=== PATIENT | female | born 1965 | race Caucasian/White ===

== ENCOUNTER → 2018-01-09 | Outpatient (CLI) | payer SELFPAY ==
--- NOTE | 2018-01-09 13:57 | Diagnostic Imaging Report ---
PROCEDURE: MRI lumbar spine. TECHNIQUE: Multiplanar, multisequence MRI of the lumbar spine was performed without contrast. INDICATION: Fall in August 2017 with continued low back pain. No prior studies are available for comparison. FINDINGS: Curvature and alignment is normal. There is very slight anterior wedging and central compression of the L5 vertebral body. There is some minimal edema within the L5 vertebral body. Features are suspicious for a healing L5 fracture. No definite retropulsion is seen. Remaining lumbar vertebrae demonstrate normal height and marrow signal intensity. There is fairly normal height and signal intensity to the lumbar discs apart from degenerative disc disease at L5-S1 with disc space narrowing and desiccation. The conus is unremarkable at the L1-L2 level. T12-L1: No central canal or neuroforaminal stenosis is identified. L1-L2: Unremarkable. L2-L3: There is mild ligamentous thickening but no central canal or neuroforaminal stenosis is identified. L3-L4: There are degenerative facet changes and mild ligamentous changes but no central canal narrowing is seen. There is very mild narrowing of the neuroforamina bilaterally. L4-L5: There is broad-based disc bulging, asymmetric in the midline and left paramidline location indenting the ventral thecal sac. Central canal remains widely patent. There does appear to be some narrowing of the left lateral recess and left neuroforamen. L5-S1: Central canal is patent. There is broad-based disc/osteophyte complex resulting in moderate right neuroforaminal and right lateral recess stenosis. Paraspinous tissues are unremarkable. IMPRESSION: 1. Findings suggestive of a healing fracture involving the superior endplate of the L5 vertebral body. No retropulsion is seen. 2. Generalized lumbar spondylosis with mild lateral recess and neuroforaminal narrowing described level by level above. No central canal stenosis is identified. Dictated by: Dictated on workstation # [id number]
== END ==
LOC: RAD 09:08
PROVIDERS: ATTEND Nurse Practitioner Family
DX: M99.73 Connective tissue and disc stenosis of intervertebral foramina of lumbar region (principal); M51.17 Intervertebral disc disorders with radiculopathy, lumbosacral region; M47.816 Spondylosis without myelopathy or radiculopathy, lumbar region
CPT/HCPCS: 72148

== ENCOUNTER 2018-04-11 13:46 | Emergency (ER) | payer SELFPAY ==
--- OUTSIDE RECORDS SUMMARY | 2018-04-11 14:10 | XMS REPORT ---
Author Author EMELY QUINTERO [facility] Address [address] [place] [address] Care Team Providers Care Automotive Dismantler Name Role Phone LEON EMELY Unavailable PROBLEMS Type Condition ICD9-CM Code [id number] Code Onset Dates Condition Status SNOMED Code Problem Elevated cholesterol E78.00 Active 95642004 Problem Primary insomnia F51.01 Active 7365409 Problem Lumbago with sciatica, left side M54.42 Active 306200521 Problem Dysthymia F34.1 Active 59923728 Problem Other chronic pain G89.29 Active 70559510 Problem Lumbago with sciatica, right side M54.41 Active 448535098733081 ALLERGIES No Known Allergies ENCOUNTERS Encounter Location Date Diagnosis [place] [address] [address] Feb, Lumbago with sciatica, left side M54.42 and Primary insomnia F51.01 [place] [address] [address] Jan, [place] [address] [address] Jan, Lumbago with sciatica, right side M54.41 and Lumbago with sciatica, left side M54.42 [place] [address] [address] Dec, Elevated cholesterol E78.00 [place] [address] [address] Dec, Lumbago with sciatica, left side M54.42 ; Elevated 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 reading R03.0 ; Lumbago with sciatica, right side M54.41 ; Other chronic pain G89.29 ; Dysthymia F34.1 ; Primary insomnia F51.01 and Encounter to establish care Z76.89 [facility] [address] [address] Dec, Primary insomnia F51.01 ; Lumbago with sciatica, left side M54.42 ; Lumbago with sciatica, right side M54.41 and Dysthymia F34.1 [facility] [address] [place] [id number] [place] [address] Dec, [facility] [address], [place] [address] Dec, Lumbago with sciatica, left side M54.42 ; Lumbago with sciatica, right side M54.41 ; Other chronic pain G89.29 ; Dysthymia F34.1 ; Primary insomnia F51.01 and Elevated 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 reading R03.0 [facility]ALK IN [facility] [address], [place] [address] Dec, IMMUNIZATIONS No Known Immunizations SOCIAL HISTORY Never Assessed REASON FOR VISIT Insomnia-ANGI garrett, can't sleep because of whole body is hurting PLAN OF CARE Activity Details Follow Up 4 Weeks Reason:insomnia VITAL SIGNS Height 68 in 2017-12-13 Weight 201.8 lbs 2017-12-13 Temperature 98.4 degrees Fahrenheit 2017-12-13 Heart Rate 72 bpm 2017-12-13 Respiratory Rate 20 2017-12-13 BMI 30.68 kg/m2 2017-12-13 Blood pressure systolic 124 mmHg 2017-12-13 Blood pressure diastolic 82 mmHg 2017-12-13 MEDICATIONS Medication Instructions Dosage Frequency Start Date End Date Duration Status Trazodone HCl 50 mg Orally Once a day 1 tablet at bedtime as needed 24h Dec, 28 days Active Gabapentin 300 MG Orally 3 times a day 1 capsule 8h Active Lamictal 100 mg Orally 3 times a day 3 tablets 8h 30 days Active Metaxalone 400 mg Orally Three times a day 1 tablet 8h Dec,Dec 07 days Active BuSpar 15 mg Orally Twice a day 1 tablet 12h 30 days Active Meloxicam 15 mg Orally Once a day 1 tablet 24h Dec, Jan, Active RESULTS No Results PROCEDURES No Known procedures INSTRUCTIONS MEDICATIONS ADMINISTERED No Known Medications MEDICAL (GENERAL) HISTORY Type Description Date Medical History disc narrowing L5-S1 Surgical History c section x2 Surgical History total hysterectomy 2006 Surgical History appendectomy Surgical History shoulder surgery x 3 Surgical History foot surgery x 2 Surgical History hand surgery for carpel tunnel x 2 Hospitalization History surgery reasons
--- OUTSIDE RECORDS SUMMARY | 2018-04-11 14:10 | XMS REPORT ---
Author Author EMELY QUINTERO [facility] Address [address] [place] [address] Care Team Providers Care Senior Process Engineer Name Role Phone KING EMELY Unavailable PROBLEMS Type Condition ICD9-CM Code [id number] Code Onset Dates Condition Status SNOMED Code Problem Elevated cholesterol E78.00 Active 34242901 Problem Primary insomnia F51.01 Active 1153297 Problem Lumbago with sciatica, left side M54.42 Active 693595344 Problem Dysthymia F34.1 Active 52956994 Problem Other chronic pain G89.29 Active 31840630 Problem Lumbago with sciatica, right side M54.41 Active [id number] ALLERGIES No Information ENCOUNTERS Encounter Location Date Diagnosis [place] [address] [address] Feb, Lumbago with sciatica, left side M54.42 and Primary insomnia F51.01 [place] [address] [address] Jan, [place] [address] [address] Jan, Lumbago with sciatica, right side M54.41 and Lumbago with sciatica, left side M54.42 [place] [address] [address] Dec, Elevated cholesterol E78.00 [place] [address] [address] Dec, Lumbago with sciatica, left side M54.42 ; Elevated 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 reading R03.0 ; Lumbago with sciatica, right side M54.41 ; Other chronic pain G89.29 ; Dysthymia F34.1 ; Primary insomnia F51.01 and Encounter to establish care Z76.89 [facility] [address], [place] [address] Dec, Primary insomnia F51.01 ; Lumbago with sciatica, left side M54.42 ; Lumbago with sciatica, right side M54.41 and Dysthymia F34.1 [facility] [address] [place] [address] Dec, [facility] [address] [place] [address] Dec, Lumbago with sciatica, left side M54.42 ; Lumbago with sciatica, right side M54.41 ; Other chronic pain G89.29 ; Dysthymia F34.1 ; Primary insomnia F51.01 and Elevated 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 reading R03.0 [facility] WALK IN [facility] [address], [place] [address] Dec, IMMUNIZATIONS No Known Immunizations SOCIAL HISTORY Never Assessed REASON FOR VISIT Requests return call PLAN OF CARE VITAL SIGNS MEDICATIONS No Known Medications RESULTS No Results PROCEDURES No Known procedures INSTRUCTIONS MEDICATIONS ADMINISTERED No Known Medications MEDICAL (GENERAL) HISTORY Type Description Date Medical History disc narrowing L5-S1 Surgical History c section x2 Surgical History total hysterectomy 2005 Surgical History appendectomy Surgical History shoulder surgery x 3 Surgical History foot surgery x 2 Surgical History hand surgery for carpel tunnel x 2 Hospitalization History surgery reasons
--- OUTSIDE RECORDS SUMMARY | 2018-04-11 14:10 | XMS REPORT ---
Author Author EMELY QUINTERO [facility] Address [address] [place] [address] Care Team Providers Care Mine Exploration Engineer Name Role Phone LEON EMELY Unavailable PROBLEMS Type Condition ICD9-CM Code NVM29-VD Code Onset Dates Condition Status SNOMED Code Problem Elevated cholesterol E78.00 Active 71590769 Problem Primary insomnia F51.01 Active 9108548 Problem Lumbago with sciatica, left side M54.42 Active 419239749 Problem Dysthymia F34.1 Active 11105045 Problem Other chronic pain G89.29 Active 55141908 Problem Lumbago with sciatica, right side M54.41 Active [id number] ALLERGIES No Known Allergies ENCOUNTERS Encounter Location Date Diagnosis [place] [address] [address] Feb, Lumbago with sciatica, left side M54.42 and Primary insomnia F51.01 [place] [address] [address] Jan, [place] [address] [address] Jan, Lumbago with sciatica, right side M54.41 and Lumbago with sciatica, left side M54.42 [place] [address] [address] Dec, Elevated cholesterol E78.00 [place] [address] [address] Dec, Lumbago with sciatica, left side M54.42 ; Elevated 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 reading R03.0 ; Lumbago with sciatica, right side M54.41 ; Other chronic pain G89.29 ; Dysthymia F34.1 ; Primary insomnia F51.01 and Encounter to establish care Z76.89 [facility] [address] [place] [address] Dec, Primary insomnia F51.01 ; Lumbago with sciatica, left side M54.42 ; Lumbago with sciatica, right side M54.41 and Dysthymia F34.1 [place] [address] [place] [id number] [place] [address] Dec, [facility] [address] [place] [id number] [place] [address] Dec, Lumbago with sciatica, left side M54.42 ; Lumbago with sciatica, right side M54.41 ; Other chronic pain G89.29 ; Dysthymia F34.1 ; Primary insomnia F51.01 and Elevated 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 reading R03.0 [facility] WALK IN [facility] [address] [place] [address] Dec, IMMUNIZATIONS Vaccine Route Administration Date Status TORADOL (IM) 60 MG/2ML (UP TO 15 MG) IM Intramuscular December 12, 2017 Administered SOCIAL HISTORY Never Assessed REASON FOR VISIT Establish Care-ANGI garrett, falling two or three times a day, head injury 2008. and having migrains PLAN OF CARE Activity Details Follow Up next available with behavioral health/4 weeks w mt Reason:depression /pain Pending Test PDM - 06 PANEL (PROFILE 3) VITAL SIGNS Height 68 in 2017-12-12 Weight 203.5 lbs 2017-12-12 Temperature 98.4 degrees Fahrenheit 2017-12-12 Heart Rate 96 bpm 2017-12-12 Respiratory Rate 20 2017-12-12 BMI 30.94 kg/m2 2017-12-12 Blood pressure systolic 160 mmHg 2017-12-12 Blood pressure diastolic 102 mmHg 2017-12-12 MEDICATIONS Medication Instructions Dosage Frequency Start Date End Date Duration Status Meloxicam 15 mg Orally Once a day 1 tablet 24h Dec, Jan, 30 day(s) Active Gabapentin 300 MG Orally 3 times a day 1 capsule 8h Active Amitriptyline HCl 100 MG Orally Once a day 1 tablet 24h Active BuSpar 15 MG Orally Twice a day 1 tablet 12h Active Lamictal 100 mg Orally 3 times a day 3 tablets 8h Active RESULTS Name Result Date Reference Range Xray : Spine, Lumbar 2-3 views (IN HOUSE) 2017-12-12 PROCEDURES Procedure Date Ordered Result Body Site X-RAY EXAM OF LOWER SPINE December 12, 2017 DRUG TEST PRSMV CHEM ANLYZR December 12, 2017 THER/PROPH/DIAG INJ, SC/IM December 12, 2017 TORADOL (IM) 60 MG/2ML (UP TO 15 MG) December 12, 2017 INSTRUCTIONS MEDICATIONS ADMINISTERED No Known Medications MEDICAL (GENERAL) HISTORY Type Description Date Medical History disc narrowing L5-S1 Surgical History c section x2 Surgical History total hysterectomy 2006 Surgical History appendectomy Surgical History shoulder surgery x 3 Surgical History foot surgery x 2 Surgical History hand surgery for carpel tunnel x 2 Hospitalization History surgery reasons
--- OUTSIDE RECORDS SUMMARY | 2018-04-11 14:10 | XMS REPORT ---
Author Author IGNACIO JOHNSON [facility] Address [address] [place] [address] Care Team Providers Care Monitor Car Operator Name Role Phone IGNACIO JOHNSON Unavailable PROBLEMS Type Condition ICD9-CM Code OXT24-QI Code Onset Dates Condition Status SNOMED Code Problem Elevated cholesterol E78.00 Active 83146263 Problem Primary insomnia F51.01 Active 3819365 Problem Lumbago with sciatica, left side M54.42 Active 597936360 Problem Dysthymia F34.1 Active 56977760 Problem Other chronic pain G89.29 Active 52169587 Problem Lumbago with sciatica, right side M54.41 Active [id number] ALLERGIES No Information ENCOUNTERS Encounter Location Date Diagnosis [place] [address] [place] [id number] [place] [address] Feb, [place] [address] [address] Jan, [place] [address] [address] Jan, Lumbago with sciatica, right side M54.41 and Lumbago with sciatica, left side M54.42 [facility] [address] [place] [id number] [place] [address] Dec, Elevated cholesterol E78.00 [facility] [address] [address] Dec, Lumbago with sciatica, left side M54.42 ; Elevated 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 reading R03.0 ; Lumbago with sciatica, right side M54.41 ; Other chronic pain G89.29 ; Dysthymia F34.1 ; Primary insomnia F51.01 and Encounter to establish care Z76.89 [facility] [address] [place] [address] [address] Dec, Primary insomnia F51.01 ; Lumbago with sciatica, left side M54.42 ; Lumbago with sciatica, right side M54.41 and Dysthymia F34.1 [facility] [address] [place] [address], [place] [address] Dec, [facility] [address], [place] [address] Dec, Lumbago with sciatica, left side M54.42 ; Lumbago with sciatica, right side M54.41 ; Other chronic pain G89.29 ; Dysthymia F34.1 ; Primary insomnia F51.01 and Elevated 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 reading R03.0 [facility] WALK IN [facility] [address] [place] [address] [address] Dec, IMMUNIZATIONS No Known Immunizations SOCIAL HISTORY Never Assessed REASON FOR VISIT lower back pain et down right leg all the way to her foot. been like this for 4 months. [email or web address] PLAN OF CARE VITAL SIGNS Height 68 in 2017-12-06 Weight 205.0 lbs 2017-12-06 Temperature 98.2 degrees Fahrenheit 2017-12-06 Heart Rate 80 bpm 2017-12-06 Respiratory Rate 18 2017-12-06 BMI 31.17 kg/m2 2017-12-06 Blood pressure systolic 128 mmHg 2017-12-06 Blood pressure diastolic 74 mmHg 2017-12-06 MEDICATIONS Medication Instructions Dosage Frequency Start Date End Date Duration Status Gabapentin 300 MG Orally Once a day 1 capsule 24h Active BuSpar 15 MG Orally Twice a day 1 tablet 12h Active Amitriptyline HCl 100 MG Orally Once a day 1 tablet 24h Active RESULTS No Results PROCEDURES No Known [...]
--- OUTSIDE RECORDS SUMMARY | 2018-04-11 14:10 | XMS REPORT ---
Author Author EMELY QUINTERO [facility] Address [address] [place] [address] Care Team Providers Care Site Damage Prevention Technician Name Role Phone KING EMELY Unavailable PROBLEMS Type Condition ICD9-CM Code VSD81-KD Code Onset Dates Condition Status SNOMED Code Problem Elevated cholesterol E78.00 Active 31180115 Problem Primary insomnia F51.01 Active 0864599 Problem Lumbago with sciatica, left side M54.42 Active 979070657 Problem Dysthymia F34.1 Active 54785746 Problem Other chronic pain G89.29 Active 55108024 Problem Lumbago with sciatica, right side M54.41 Active 168404288694030 ALLERGIES No Known Allergies ENCOUNTERS Encounter Location Date Diagnosis [place] [address] [address] Feb, Lumbago with sciatica, left side M54.42 and Primary insomnia F51.01 [place] [address] [address] Jan, [place] [address] [address] Jan, Lumbago with sciatica, right side M54.41 and Lumbago with sciatica, left side M54.42 [place] [address] [address] Dec, Elevated cholesterol E78.00 [place] [address] [address] Dec, Lumbago with sciatica, left side M54.42 ; Elevated 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 reading R03.0 ; Lumbago with sciatica, right side M54.41 ; Other chronic pain G89.29 ; Dysthymia F34.1 ; Primary insomnia F51.01 and Encounter to establish care Z76.89 [facility] [address], [place] [address] Dec, Primary insomnia F51.01 ; Lumbago with sciatica, left side M54.42 ; Lumbago with sciatica, right side M54.41 and Dysthymia F34.1 [facility] [address] [place] [address] Dec, [facility] [address], [place] [address] Dec, 2017 Lumbago with sciatica, left side M54.42 ; Lumbago with sciatica, right side M54.41 ; Other chronic pain G89.29 ; Dysthymia F34.1 ; Primary insomnia F51.01 and Elevated 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 reading R03.0 [facility] WALK IN [facility] [address], [place] [address] Dec, IMMUNIZATIONS No Known Immunizations SOCIAL HISTORY Never Assessed REASON FOR VISIT 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-awoods PLAN OF CARE Activity Details Follow Up 4-6 weeks if not better Reason:back pain VITAL SIGNS Height 68 in 2018-01-03 Weight 200.8 lbs 2018-01-03 Temperature 98.2 degrees Fahrenheit 2018-01-03 Heart Rate 90 bpm 2018-01-03 Respiratory Rate 20 2018-01-03 BMI 30.53 kg/m2 2018-01-03 Blood pressure systolic 124 mmHg 2018-01-03 Blood pressure diastolic 80 mmHg 2018-01-03 MEDICATIONS Medication Instructions Dosage Frequency Start Date End Date Duration Status Tizanidine HCl 2 MG Orally Three times a day 1 tablet as needed 8h Jan, Jan, 14 days Active ibuprofen Active Ibuprofen 800 MG Orally Three times a day 1 tablet with food or milk as needed 8h Jan, Active RESULTS Name Result Date Reference Range MRI : Lumbar w/o contrast 2018-01-09 PROCEDURES No Known procedures INSTRUCTIONS MEDICATIONS ADMINISTERED [...]
--- OUTSIDE RECORDS SUMMARY | 2018-04-11 14:10 | XMS REPORT ---
Author Author EMELY QUINTERO [facility] Address [address] [place] [address] Care Team Providers Care Inspection And Testing Supervisor Name Role Phone KING EMELY Unavailable PROBLEMS Type Condition ICD9-CM Code CTX85-CV Code Onset Dates Condition Status SNOMED Code Problem Elevated cholesterol E78.00 Active 71188110 Problem Primary insomnia F51.01 Active 8479810 Problem Lumbago with sciatica, left side M54.42 Active 237657805 Problem Dysthymia F34.1 Active 07801006 Problem Other chronic pain G89.29 Active 49466322 Problem Lumbago with sciatica, right side M54.41 Active 875876612864431 ALLERGIES No Information ENCOUNTERS Encounter Location Date Diagnosis [place] [address] [address] Feb, Lumbago with sciatica, left side M54.42 and Primary insomnia F51.01 [place] [address] [address] Jan, [place] [address] [address] Jan, Lumbago with sciatica, right side M54.41 and Lumbago with sciatica, left side M54.42 [place] [address] [address] Dec, Elevated cholesterol E78.00 [place] [address] [address] Dec, Lumbago with sciatica, left side M54.42 ; Elevated 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 reading R03.0 ; Lumbago with sciatica, right side M54.41 ; Other chronic pain G89.29 ; Dysthymia F34.1 ; Primary insomnia F51.01 and Encounter to establish care Z76.89 [facility] [address], [place] [address] Dec, Primary insomnia F51.01 ; Lumbago with sciatica, left side M54.42 ; Lumbago with sciatica, right side M54.41 and Dysthymia F34.1 [facility] [address] [place] [address] Dec, [facility] [address] [place] [address] Dec, Lumbago with sciatica, left side M54.42 ; Lumbago with sciatica, right side M54.41 ; Other chronic pain G89.29 ; Dysthymia F34.1 ; Primary insomnia F51.01 and Elevated 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 reading R03.0 [facility] WALK IN [facility] [address], [place] [address] Dec, IMMUNIZATIONS No Known Immunizations SOCIAL HISTORY Never Assessed REASON FOR VISIT PLAN OF CARE VITAL SIGNS MEDICATIONS No [...]
--- OUTSIDE RECORDS SUMMARY | 2018-04-11 14:10 | XMS REPORT ---
Author Author EMELY QUINTERO [facility] Address [address] [place] [address] Care Team Providers Care Dietary Supervisor Name Role Phone KING EMELY Unavailable PROBLEMS Type Condition ICD9-CM Code SNS50-MJ Code Onset Dates Condition Status SNOMED Code Problem Elevated cholesterol E78.00 Active 70005102 Problem Primary insomnia F51.01 Active 0647132 Problem Lumbago with sciatica, left side M54.42 Active 253139085 Problem Dysthymia F34.1 Active 68135941 Problem Other chronic pain G89.29 Active 39650413 Problem Lumbago with sciatica, right side M54.41 Active 448187646242317 ALLERGIES No Information ENCOUNTERS Encounter Location Date Diagnosis [place] [address] [address] Feb, Lumbago with sciatica, left side M54.42 and Primary insomnia F51.01 [place] [address] [address] Jan, [place] [address] [address] Jan, Lumbago with sciatica, right side M54.41 and Lumbago with sciatica, left side M54.42 [place] [address] [address] Dec, Elevated cholesterol E78.00 [place] [address] [address] Dec, Lumbago with sciatica, left side M54.42 ; Elevated 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 reading R03.0 ; Lumbago with sciatica, right side M54.41 ; Other chronic pain G89.29 ; Dysthymia F34.1 ; Primary insomnia F51.01 and Encounter to establish care Z76.89 [facility] [address] [address] Dec, Primary insomnia F51.01 ; Lumbago with sciatica, left side M54.42 ; Lumbago with sciatica, right side M54.41 and Dysthymia F34.1 [facility] [address] [place] [address] Dec, [facility] [address] [place] [address] Dec, Lumbago with sciatica, left side M54.42 ; Lumbago with sciatica, right side M54.41 ; Other chronic pain G89.29 ; Dysthymia F34.1 ; Primary insomnia F51.01 and Elevated 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 reading R03.0 [facility] IN [facility] [address] [address] Dec, IMMUNIZATIONS No Known Immunizations SOCIAL HISTORY Never Assessed REASON FOR VISIT DI Results PLAN OF CARE VITAL SIGNS MEDICATIONS No [...]
--- OUTSIDE RECORDS SUMMARY | 2018-04-11 14:10 | XMS REPORT ---
Author Author EMELY QUINTERO [facility] Address [address] [place] [address] Care Team Providers Care Summer Clerk Name Role Phone LEON EMELY Unavailable PROBLEMS Type Condition ICD9-CM Code [id number] Code Onset Dates Condition Status SNOMED Code Problem Elevated cholesterol E78.00 Active 25564605 Problem Primary insomnia F51.01 Active 6373874 Problem Lumbago with sciatica, left side M54.42 Active 416359391 Problem Dysthymia F34.1 Active 03444742 Problem Other chronic pain G89.29 Active 47990642 Problem Lumbago with sciatica, right side M54.41 Active [id number] ALLERGIES No Information ENCOUNTERS Encounter Location Date Diagnosis [place] [address] [address] Feb, Lumbago with sciatica, left side M54.42 and Primary insomnia F51.01 [place] [address] [address] Jan, [place] [address] [address] Jan, Lumbago with sciatica, right side M54.41 and Lumbago with sciatica, left side M54.42 [place] [address] [address] Dec, Elevated cholesterol E78.00 [place] [address] [address] Dec, Lumbago with sciatica, left side M54.42 ; Elevated 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 reading R03.0 ; Lumbago with sciatica, right side M54.41 ; Other chronic pain G89.29 ; Dysthymia F34.1 ; Primary insomnia F51.01 and Encounter to establish care Z76.89 [facility] [address] [place] [id number] [address] 12 Dec, 2017 Primary insomnia F51.01 ; Lumbago with sciatica, left side M54.42 ; Lumbago with sciatica, right side M54.41 and Dysthymia F34.1 [facility] [address] [address] 12 Dec, 2017 [facility] [address] [address] 11 Dec, 2017 Lumbago with sciatica, left side M54.42 ; Lumbago with sciatica, right side M54.41 ; Other chronic pain G89.29 ; Dysthymia F34.1 ; Primary insomnia F51.01 and Elevated 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 reading R03.0 [facility] [address] [place] [id number] [address] 05 Dec, 2017 IMMUNIZATIONS No Known Immunizations SOCIAL HISTORY Never Assessed REASON FOR VISIT Lab (walk-in) PLAN OF CARE VITAL SIGNS MEDICATIONS No Known Medications RESULTS No Results PROCEDURES Procedure Date Ordered Result Body Site COMPLETE CBC W/AUTO DIFF WBC December 20, 2017 COMPREHEN METABOLIC PANEL December 20, 2017 LIPID PANEL December 20, 2017 ASSAY THYROID STIM HORMONE December 20, 2017 VENIPUNCT, ROUTINE* December 20, 2017 INSTRUCTIONS MEDICATIONS ADMINISTERED No Known Medications MEDICAL (GENERAL) HISTORY Type Description Date Medical History disc narrowing L5-S1 Surgical History c section x2 Surgical History total hysterectomy 2006 Surgical History appendectomy Surgical History shoulder surgery x 3 Surgical History foot surgery x 2 Surgical History hand surgery for carpel tunnel x 2 Hospitalization History surgery reasons
--- OUTSIDE RECORDS SUMMARY | 2018-04-11 14:10 | XMS REPORT ---
Author Author EMELY QUINTERO [facility] Address [address] [place] [address] Care Team Providers Care Logistics Planning Engineer Name Role Phone KING EMELY Unavailable PROBLEMS Type Condition ICD9-CM Code [id number] Code Onset Dates Condition Status SNOMED Code Problem Elevated cholesterol E78.00 Active 56072555 Problem Primary insomnia F51.01 Active 5483376 Problem Lumbago with sciatica, left side M54.42 Active 517957838 Problem Dysthymia F34.1 Active 25577755 Problem Other chronic pain G89.29 Active 06174076 Problem Lumbago with sciatica, right side M54.41 Active 489500269917063 ALLERGIES Substance Reaction Event Type Date Status Compazine anxiety Drug Allergy Feb, Active ENCOUNTERS Encounter Location Date Diagnosis [place] [address] [place] [id number] [place] [address] Mar, Lumbago with sciatica, left side M54.42 ; Primary insomnia F51.01 and Lumbago with sciatica, right side M54.41 [place] [address] [place] [id number] [place] [address] Feb, Lumbago with sciatica, left side M54.42 and Primary insomnia F51.01 [facility] [address] [place] [id number] [place] [address] Jan, [place] [address] [address] Jan, Lumbago with sciatica, right side M54.41 and Lumbago with sciatica, left side M54.42 [place] [address] [place] [id number] [address] Dec, Elevated cholesterol E78.00 [place] [address] [place] [address] Dec, Lumbago with sciatica, left side M54.42 ; Elevated 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 reading R03.0 ; Lumbago with sciatica, right side M54.41 ; Other chronic pain G89.29 ; Dysthymia F34.1 ; Primary insomnia F51.01 and Encounter to establish care Z76.89 [facility] [address] [place] [address] Dec, Primary insomnia F51.01 ; Lumbago with sciatica, left side M54.42 ; Lumbago with sciatica, right side M54.41 and Dysthymia F34.1 [place] [address] [place] [address] Dec, [place] [address] [place] [address] Dec, Lumbago with sciatica, left side M54.42 ; Lumbago with sciatica, right side M54.41 ; Other chronic pain G89.29 ; Dysthymia F34.1 ; Primary insomnia F51.01 and Elevated 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 reading R03.0 [facility] [address] [place] [id number] [place], [place] [id number] Dec, IMMUNIZATIONS No Known Immunizations SOCIAL HISTORY Never Assessed REASON FOR VISIT Blood Pressure--tcuppettRN, --Needing all medications refilled PLAN OF CARE Activity Details Follow Up 3 Months Reason:chronic pain VITAL SIGNS Height 68 in 2018-02-22 Weight 195.8 lbs 2018-02-22 Temperature 98.1 degrees Fahrenheit 2018-02-22 Heart Rate 76 bpm 2018-02-22 Respiratory Rate 18 2018-02-22 BMI 29.77 kg/m2 2018-02-22 Blood pressure systolic 130 mmHg 2018-02-22 Blood pressure diastolic 86 mmHg 2018-02-22 MEDICATIONS Medication Instructions Dosage Frequency Start Date End Date Duration Status Ibuprofen 800 MG Orally Three times a day 1 tablet with food or milk as needed 8h Jan, Active Amitriptyline HCl 100 mg Orally at bedtime 1 tablet 30 days Active Gabapentin 600 MG Orally 3 times a day 1 tablet 8h 30 days Active Tizanidine HCl 4 MG Orally Three times a day 1 tablet as needed 8h Jan, Mar, 30 days Active RESULTS No Results PROCEDURES No Known [...]
== END 2018-04-11 14:11 | disposition left against medical advice (07) ==
LOC: EDUNIT# 13:46 → ER 13:47
DX: M54.30 Sciatica, unspecified side (principal)

== ENCOUNTER 2018-10-04 16:55 | Emergency (ER) | payer SELFPAY ==
[~2018-10-04] VITALS: Ht 172.7 cm; Wt 90.7 kg
--- OUTSIDE RECORDS SUMMARY | 2018-10-04 16:59 | XMS REPORT ---
Author Author EMELY QUINTERO [facility] Address [address] [place] [address] Care Team Providers Care Sewing Teacher Name Role Phone LEON EMELY Unavailable PROBLEMS Type Condition ICD9-CM Code ALY78-BB Code Onset Dates Condition Status SNOMED Code Problem Dysthymia F34.1 Active 17561164 Problem Gastroesophageal reflux disease without esophagitis K21.9 Active 231682349 Problem Elevated cholesterol E78.00 Active 92883089 Problem Lumbago with sciatica, right side M54.41 Active 364749223526938 Problem Lumbago with sciatica, left side M54.42 Active 618629050 Problem Primary insomnia F51.01 Active 4876210 Problem Other chronic pain G89.29 Active 58425223 ALLERGIES No Information ENCOUNTERS Encounter Location Date Diagnosis [place] [address] [address] May, Gastroesophageal reflux disease without esophagitis K21.9 and Lumbago with sciatica, left side M54.42 [place] [address] [place] [id number] [place] [address] Apr, Lumbago with sciatica, right side M54.41 and Encounter for immunization Z23 [place] [address] [place] [id number] [place] [address] Apr, Lumbago with sciatica, left side M54.42 [place] [address] [address] Apr, Lumbago with sciatica, right side M54.41 and Gastroesophageal reflux disease without esophagitis K21.9 [place] [address] [place] [id number] [place] [address] Mar, Lumbago with sciatica, left side M54.42 ; Primary insomnia F51.01 and Lumbago with sciatica, right side M54.41 [place] [address] [place] [id number] [place] [address] Feb, Lumbago with sciatica, left side M54.42 and Primary insomnia F51.01 [place] [address] [place] [id number] [place] [address] Jan, [place] [address] [address] Jan, Lumbago with sciatica, right side M54.41 and Lumbago with sciatica, left side M54.42 [place] [address] [address] Dec, Elevated cholesterol E78.00 [place] [address] [address] Dec, Lumbago with sciatica, left side M54.42 ; Elevated 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 reading R03.0 ; Lumbago with sciatica, right side M54.41 ; Other chronic pain G89.29 ; Dysthymia F34.1 ; Primary insomnia F51.01 and Encounter to establish care Z76.89 [place] [address] [place] [id number] [place] [address] Dec, Primary insomnia F51.01 ; Lumbago with sciatica, left side M54.42 ; Lumbago with sciatica, right side M54.41 and Dysthymia F34.1 [place] [address] [place] [id number] [place] [address] Dec, [place] [address] [address] Dec, Lumbago with sciatica, left side M54.42 ; Lumbago with sciatica, right side M54.41 ; Other chronic pain G89.29 ; Dysthymia F34.1 ; Primary insomnia F51.01 and Elevated 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 reading R03.0 [facility] [address] [facility] [id number] [address] Dec, IMMUNIZATIONS No Known Immunizations SOCIAL HISTORY Never Assessed REASON FOR VISIT refill request PLAN OF CARE VITAL SIGNS MEDICATIONS Medication Instructions Dosage Frequency Start Date End Date Duration Status Omeprazole 20 mg Orally twice a day 1 capsule 12h 10 Apr, 2018 Active Gabapentin 600 MG Orally 3 times a day 1 tablet 8h 90 days Active RESULTS No Results PROCEDURES No [...]
--- OUTSIDE RECORDS SUMMARY | 2018-10-04 16:59 | XMS REPORT ---
Author Author EMELY QUINTERO [facility] Address [address] [place] [address] Care Team Providers Care Twitchell Operator Name Role Phone LEON EMELY Unavailable PROBLEMS Type Condition ICD9-CM Code TJC97-SB Code Onset Dates Condition Status SNOMED Code Problem Dysthymia F34.1 Active 33734481 Problem Gastroesophageal reflux disease without esophagitis K21.9 Active 118588002 Problem Elevated cholesterol E78.00 Active 37461264 Problem Lumbago with sciatica, right side M54.41 Active 651835066625402 Problem Lumbago with sciatica, left side M54.42 Active 669201236 Problem Primary insomnia F51.01 Active 0624255 Problem Other chronic pain G89.29 Active 70830687 ALLERGIES Substance Reaction Event Type Date Status Compazine anxiety Drug Allergy Jun, Active Celebrex shortness of breath Drug Allergy Jun, Active ENCOUNTERS Encounter Location Date Diagnosis [place] [address] [place] [id number] [place] [address] Jun, Lumbago with sciatica, left side M54.42 and Lumbago with sciatica, right side M54.41 [place] [address] [place] [id number] [place] [address] May, Gastroesophageal reflux disease without esophagitis K21.9 and Lumbago with sciatica, left side M54.42 [facility] [address] [place] [id number] [place] [address] Apr, Lumbago with sciatica, right side M54.41 and Encounter for immunization Z23 [facility] [address] [place] [id number] [place] [address] Apr, Lumbago with sciatica, left side M54.42 [place] [address] [place] [address] [place] [address] 10 Apr, 2018 Lumbago with sciatica, right side M54.41 and Gastroesophageal reflux disease without esophagitis K21.9 [place] [address] [place] [id number] [place] [address] Mar, Lumbago with sciatica, left side M54.42 ; Primary insomnia F51.01 and Lumbago with sciatica, right side M54.41 [place] [address] [address] Feb, Lumbago with sciatica, left side M54.42 and Primary insomnia F51.01 [place] [address] [address] Jan, [place] [address] [address] Jan, Lumbago with sciatica, right side M54.41 and Lumbago with sciatica, left side M54.42 [place] [address] [place] [id number] [place] [address] Dec, Elevated cholesterol E78.00 [place] [address] [address] Dec, Lumbago with sciatica, left side M54.42 ; Elevated 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 reading R03.0 ; Lumbago with sciatica, right side M54.41 ; Other chronic pain G89.29 ; Dysthymia F34.1 ; Primary insomnia F51.01 and Encounter to establish care Z76.89 [place] [address] [place] [id number] [place] [address] Dec, Primary insomnia F51.01 ; Lumbago with sciatica, left side M54.42 ; Lumbago with sciatica, right side M54.41 and Dysthymia F34.1 [place] [address] [address] Dec, [facility] [address] [facility] [id number] [address] 11 Dec, 2017 Lumbago with sciatica, left side M54.42 ; Lumbago with sciatica, right side M54.41 ; Other chronic pain G89.29 ; Dysthymia F34.1 ; Primary insomnia F51.01 and Elevated 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 reading R03.0 [facility] [address] [facility] [id number] [address] 05 Dec, 2017 IMMUNIZATIONS Vaccine Route Administration Date Status TORADOL (IM) 60 MG/2ML (UP TO 15 MG) IM Intramuscular Jun 14, 2018 Administered SOCIAL HISTORY Never Assessed REASON FOR VISIT back pain--tcuppettRN, Lower back pain that pt is stating is getting worse and causing migraines as well PLAN OF CARE Activity Details Follow Up if not improving with PCP or reg follow up Reason:back pain VITAL SIGNS Height 68 in 2018-06-14 Weight 218.4 lbs 2018-06-14 Temperature 98.4 degrees Fahrenheit 2018-06-14 Heart Rate 90 bpm 2018-06-14 Respiratory Rate 24 2018-06-14 BMI 33.20 kg/m2 2018-06-14 Blood pressure systolic 124 mmHg 2018-06-14 Blood pressure diastolic 82 mmHg 2018-06-14 MEDICATIONS Medication Instructions Dosage Frequency Start Date End Date Duration Status Amitriptyline HCl 100 mg Orally at bedtime 1 tablet Active Omeprazole 20 mg Orally twice a day 1 capsule 12h Apr, Active Cyclobenzaprine HCl 10 mg Orally Three times a day 1 tablet as needed 8h Jun, 30 days Active Ibuprofen 800 MG Orally Three times a day 1 tablet with food or milk as needed 8h Jan, Active MethylPREDNISolone 4 MG Orally as directed as directed Jun, Active Gabapentin 600 MG Orally 3 times a day 1 tablet 8h 90 days Active RESULTS No Results PROCEDURES Procedure Date Ordered Result Body Site TORADOL (IM) 60 MG/2ML (UP TO 15 MG) Jun 14, 2018 THER/PROPH/DIAG INJ, SC/IM Jun 14, 2018 INSTRUCTIONS MEDICATIONS ADMINISTERED No Known Medications MEDICAL (GENERAL) HISTORY Type Description Date Medical History disc narrowing L5-S1 Surgical History c section x2 Surgical History total hysterectomy 2006 Surgical History appendectomy Surgical History shoulder surgery x 3 Surgical History foot surgery x 2 Surgical History hand surgery for carpel tunnel x 2 Hospitalization History surgery reasons
--- OUTSIDE RECORDS SUMMARY | 2018-10-04 16:59 | XMS REPORT ---
Author Author EMELY QUINTERO [facility] Address [address] [place] [address] Care Team Providers Care Machine Stripper Name Role Phone SALTY QUINTEROTA Unavailable PROBLEMS Type Condition ICD9-CM Code HUG66-MG Code Onset Dates Condition Status SNOMED Code Problem Dysthymia F34.1 Active 38718922 Problem Gastroesophageal reflux disease without esophagitis K21.9 Active 566019889 Problem Elevated cholesterol E78.00 Active 14682078 Problem Lumbago with sciatica, right side M54.41 Active 583857331043872 Problem Lumbago with sciatica, left side M54.42 Active 890363020 Problem Primary insomnia F51.01 Active 6621967 Problem Other chronic pain G89.29 Active 53995586 ALLERGIES Substance Reaction Event Type Date Status Compazine anxiety Drug Allergy Apr, Active Celebrex shortness of breath Drug Allergy Apr, Active ENCOUNTERS Encounter Location Date Diagnosis [place] [address] [address] Apr, Lumbago with sciatica, right side M54.41 and Encounter for immunization Z23 [place] [address] [address] Apr, Lumbago with sciatica, left side M54.42 [facility] [address] [address] Apr, Lumbago with sciatica, right side M54.41 and Gastroesophageal reflux disease without esophagitis K21.9 [place] [address] [address] Mar, Lumbago with sciatica, left side M54.42 ; Primary insomnia F51.01 and Lumbago with sciatica, right side M54.41 [place] [address] [address] Feb, Lumbago with sciatica, left side M54.42 and Primary insomnia F51.01 [place] [address] [place] [id number] [place] [address] Jan, [place] [address] [place] [id number] [place] [address] Jan, Lumbago with sciatica, right side M54.41 and Lumbago with sciatica, left side M54.42 [place] [address] [place] [id number] [place] [address] Dec, Elevated cholesterol E78.00 [place] [address] [place] [id number] [place] [address] Dec, Lumbago with sciatica, left side M54.42 ; Elevated 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 reading R03.0 ; Lumbago with sciatica, right side M54.41 ; Other chronic pain G89.29 ; Dysthymia F34.1 ; Primary insomnia F51.01 and Encounter to establish care Z76.89 [place] [address] [place] [id number] [place] [address] Dec, Primary insomnia F51.01 ; Lumbago with sciatica, left side M54.42 ; Lumbago with sciatica, right side M54.41 and Dysthymia F34.1 [place] [address] [place] [address] Dec, [place] [address] [place] [id number] [place] [address] Dec, Lumbago with sciatica, left side M54.42 ; Lumbago with sciatica, right side M54.41 ; Other chronic pain G89.29 ; Dysthymia F34.1 ; Primary insomnia F51.01 and Elevated 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 reading R03.0 [facility] [address] [place] [id number] [place] [address] Dec, IMMUNIZATIONS Vaccine Route Administration Date Status FLULAVAL QUAD 0.5ML (6 MO & UP) 2018 IM Intramuscular Apr 25, 2018 Administered SOCIAL HISTORY Never Assessed REASON FOR VISIT back pain, patient states that the last time she was here she had a tordol shot and that it only helped her back pain for a few days Maite Meyer MA PLAN OF CARE Activity Details Follow Up if not improving with PCP or reg follow up Reason: VITAL SIGNS Height 68 in 2018-04-25 Weight 214.7 lbs 2018-04-25 Temperature 97.2 degrees Fahrenheit 2018-04-25 Heart Rate 82 bpm 2018-04-25 Respiratory Rate 20 2018-04-25 BMI 32.64 kg/m2 2018-04-25 Blood pressure systolic 128 mmHg 2018-04-25 Blood pressure diastolic 68 mmHg 2018-04-25 MEDICATIONS Medication Instructions Dosage Frequency Start Date End Date Duration Status Ibuprofen 800 MG Orally Three times a day 1 tablet with food or milk as needed 8h Jan, Active Amitriptyline HCl 100 mg Orally at bedtime 1 tablet Active Tizanidine HCl 4 MG Orally Three times a day 1 tablet as needed 8h Jan, Active Gabapentin 600 MG Orally 3 times a day 1 tablet 8h 30 days Active Omeprazole 20 mg Orally twice a day 1 capsule 12h Apr, 30 day(s ) Active RESULTS No Results PROCEDURES Procedure Date Ordered Result Body Site FLULAVAL QUAD 0.5ML (6 MO AND UP) 2017Apr 25, 2018 SINGLE IMMUNIZATION ADMIN Apr 25, 2018 INSTRUCTIONS MEDICATIONS ADMINISTERED No Known Medications MEDICAL (GENERAL) HISTORY Type Description Date Medical History disc narrowing L5-S1 Surgical History c section x2 Surgical History total hysterectomy 2006 Surgical History appendectomy Surgical History shoulder surgery x 3 Surgical History foot surgery x 2 Surgical History hand surgery for carpel tunnel x 2 Hospitalization History surgery reasons
[2018-10-04] MEDS ORDERED: KETOROLAC 60 MG/2 ML VIAL IM ONE (17:15)
[2018-10-04] MEDS ORDERED: ANTACID SUSP 30 ML UDC (MYLANTA) PO ONE (17:15)
[2018-10-04] MEDS ORDERED: LIDOCAINE 2% VISCOUS 15 ML UDC PO ONE (17:15)
[2018-10-04] MEDS ORDERED: DEXAMETHASONE 10 MG/ML (DECADRON) 1 ML VIAL IM ONE (17:15)
[2018-10-04] MEDS ORDERED: PANT40TA2 PO (17:19)
[2018-10-04] MEDS ORDERED: FAMO-119 PO (17:19)
--- NOTE | 2018-10-04 17:19 | ED EENT ---
History of Present Illness General Chief Complaint: Abdominal/GI Problems Stated Complaint: SORE THROAT,SOA Nursing Triage Note: PT CO OF SORETHROAT THAT GOES DOWN CHEST STATES HAS GERD AND HAS HAD TO GET ESOPHAGAS STRETCHED. PT DENIES FEVER HAS OCC COUGH RATES DISCOMFORT 02/10 Source: patient Exam Limitations: no limitations History of Present Illness Date Seen by Provider: Oct 04, 2018 Time Seen by Provider: 17:16 Initial Comments To ER with reports of sore throat. This began yesterday and got worse overnight. She has pain with swallowing in the back of her throat, midline of her chest all the way down to the epigastric region. She has GERD. She is not diabetic. No recent antibiotic or steroid use. Timing/Duration: yesterday Severity: moderate Location: throat Associated Symptoms: denies symptoms Allergies and Home Medications Allergies Coded Allergies: No Known Drug Allergies (Unverified , 10/04/18) Patient Home Medication List Home Medication List Reviewed: Yes Review of Systems Review of Systems Constitutional: see HPI Eyes: No Symptoms Reported Ears: No Symptoms Reported Nose: no symptoms reported Mouth: no symptoms reported Throat: no symptoms reported Respiratory: no symptoms reported Cardiovascular: no symptoms reported Musculoskeletal: no symptoms reported Past Pvxsaum-Yiqbzq-Fxlpej Hx Patient Social History Alcohol Use: Denies Use Recreational Drug Use: No Smoking Status: Current Everyday Smoker Type Used: Cigarettes Recent Foreign Travel: No Contact w/Someone Who Travel: No Recent Infectious Disease Expo: No Recent Hopitalizations: No Seasonal Allergies Seasonal Allergies: No Past Medical History Appendectomy, Section, Hysterectomy, Orthopedic Respiratory: No Cardiac: Yes Hypertension Neurological: No TIP CUTTER History: Hysterectomy Genitourinary: No Gastrointestinal: Yes (ESOPHAGEAL STRETCHING) Gastroesophageal Reflux Arthritis, Fibromyalgia, Chronic Back Pain Endocrine: No HEENT: No Cancer: No Psychosocial: No Integumentary: No Physical Exam Vital Signs Vital Signs - First Documented 10/04/18 17:00 Temp 98.2 Pulse 96 Resp 18 B/P (MAP) 189/98 (128) Pulse Ox 99 Height, Weight, BMI Height: 5'8.00" Weight: 200lbs. oz. 90.039751ed; BMI Method:Stated General Appearance: WD/WN, no apparent distress Eyes: bilateral eye normal inspection, bilateral eye PERRL, bilateral eye EOMI Ears: bilateral ear auricle normal, bilateral ear canal normal, bilateral ear TM normal Mouth/Throat: No uvula swelling; other (pharyngeal erythema with some whitish pustules on the uvula and tonsillar pillars) Neck: non-tender, full range of motion; No lymphadenopathy (R), No lymphadenopathy (L) Respiratory: no respiratory distress, no accessory muscle use Neurologic/Psychiatric: alert, normal mood/affect, oriented x 3 Skin: normal color, warm/dry Progress/Results/Core Measures Results/Orders My Orders Orders - NORTH DUGAN APRN Antacid Suspension (Mylanta Suspension (10/04/18 17:15) Lidocaine 2% Viscous 15 Ml (Xylocaine Vi (10/04/18 17:15) Dexamethasone Injection (Decadron Inject (10/04/18 17:15) Ketorolac Injection (Toradol Injection) (10/04/18 17:15) Rapid Strep A Screen (10/04/18 17:12) Vital Signs/I&O 10/04/18 17:00 Temp 98.2 Pulse 96 Resp 18 B/P (MAP) 189/98 (128) Pulse Ox 99 Blood Pressure Mean: 128 Departure Impression Primary Impression: Pharyngitis Qualified Codes: J02.9 - Acute pharyngitis, unspecified Additional Impression: GERD (gastroesophageal reflux disease) Qualified Codes: K21.0 - Gastro-esophageal reflux disease with esophagitis Disposition: HOME, SELF-CARE Condition: Stable Departure-Patient Inst. Decision time for Depature: 17:18 Referrals: EMELY QUINTERO APRN (PCP) Primary Care Physician [facility] (Family) Primary Care Physician Patient Instructions: Acid Reflux (GERD), Adolescent (DC), Sore Throat in Adults Add. Discharge Instructions: 1. Acid diesel engine specialist as directed. Return to ER for any concerns. Follow-up with your doctor next week. All discharge instructions reviewed with patient and/or family. Voiced understanding. Scripts Famotidine (Pepcid) 20 Mg Tablet 20 MG PO BID, #10 TAB Prov: NORTH DUGAN APRN 10/04/18 Pantoprazole Sodium (Protonix) 40 Mg Tablet.dr 40 MG PO DAILY, #14 TAB Prov: NORTH DUGAN APRN 10/04/18 NORTH DUGAN APRN Oct 04, 2018 17:19
[2018-10-04 18:10] VITALS: BP 189/98
== END 2018-10-04 18:10 | disposition home or self-care (01) ==
LOC: EDUNIT# 16:55 → ER 16:56
DX: J02.9 Acute pharyngitis, unspecified (principal); K21.9 Gastro-esophageal reflux disease without esophagitis; I10 Essential (primary) hypertension; F17.210 Nicotine dependence, cigarettes, uncomplicated; Z90.49 Acquired absence of other specified parts of digestive tract; Z98.890 Other specified postprocedural states; Z90.710 Acquired absence of both cervix and uterus
CPT/HCPCS: 87430; 96372; 99285

== ENCOUNTER 2018-10-23 18:10 | Emergency (ER) | payer SELFPAY ==
[~2018-10-23] VITALS: Ht 170.2 cm; Wt 95.3 kg
[~2018-10-23 18:10] MED LIST: FAMO-119 PO; PANT40TA2 PO
[2018-10-23] MEDS ORDERED: NS IV 1000 ML 1,000 ML IV SCH (18:45)
[2018-10-23] MEDS ORDERED: ONDANSETRON 4 MG/2 ML (SDV) Z0FRAN IVP ONE (18:45)
[2018-10-23 18:46] LABS: BASOPHILS % (AUTO) 0 % (0-10); EOSINOPHILS # (AUTO) 0.2 10^3/uL (0.0-0.3); EOSINOPHILS % (AUTO) 2 % (0-10); HEMATOCRIT 46 % (35-52); HEMOGLOBIN 15.5 G/DL (11.5-16.0); LYMPHOCYTES # (AUTO) 2.7 X 10^3 (1.0-4.0); LYMPHOCYTES % (AUTO) 28 % (12-44); MEAN CORPUSCULAR HEMOGLOBIN 32 PG (25-34); MEAN CORPUSCULAR HGB CONC 34 G/DL (32-36); MEAN CORPUSCULAR VOLUME 95 FL (80-99); MEAN PLATELET VOLUME 10.1 FL (7.4-10.4); MONOCYTES # (AUTO) 0.7 X 10^3 (0.0-1.0); MONOCYTES % (AUTO) 7 % (0-12); NEUTROPHILS # (AUTO) 6.1 X 10^3 (1.8-7.8); NEUTROPHILS % (AUTO) 63 % (42-75); PLATELET COUNT 385 10^3/uL (130-400); RED CELL DISTRIBUTION WIDTH 13.8 % (10.0-14.5); WHITE BLOOD COUNT 9.7 10^3/uL (4.3-11.0)
--- OUTSIDE RECORDS SUMMARY | 2018-10-23 18:46 | XMS REPORT | Continuity of Care Document ---
Author Organization Unknown Address Unknown Allergies There is no data. Medications There is no data. Problems There is no data. Procedures There is no data. Results Test Result Range TSH - 12/20/17 10:16 TSH 1.19 mIU/L NRG Encounters ACCT No. Visit Date/Time Discharge Status Pt. Type Provider Facility Loc./Unit Complaint [id number] 10/10/2018 13:40:00 10/10/2018 23:59:59 CLS Outpatient EMELY QUINTERO [facility] [id number] 12/20/2017 10:00:00 Document Registration
[2018-10-23 19:02] LABS: ALANINE AMINOTRANSFERASE 39 U/L (0-55); ALBUMIN 4.5 GM/DL (3.2-4.5); ALKALINE PHOSPHATASE 180 U/L (40-136); AMYLASE 156 U/L (25-125); BILIRUBIN,TOTAL 0.4 MG/DL (0.1-1.0); BUN/CREATININE RATIO 10; CALCIUM 10.2 MG/DL (8.5-10.1); CARBON DIOXIDE 23 MMOL/L (21-32); CHLORIDE 106 MMOL/L (98-107); CREATININE SERUM 0.83 MG/DL (0.60-1.30); GFR ESTIMATED > 60; GLUCOSE 107 MG/DL (70-105); LIPASE 490 U/L (8-78); POTASSIUM 3.6 MMOL/L (3.6-5.0); SODIUM 141 MMOL/L (135-145); TOTAL PROTEIN 8.2 GM/DL (6.4-8.2)
--- NOTE | 2018-10-23 19:04 | ED Abdominal Pain ---
General Chief Complaint: Abdominal/GI Problems Stated Complaint: DIARRHEA X 10 DAYS/VOMITING Nursing Triage Note: PATIENT AMBULATORY TO ER WITH SPOUSE COMPLAINING OF ABDOMINAL PAIN, VOMITING AND DIARRHEA. PATIENT STATES SEVERAL WEEKS AGO SHE WAS SEEN IN THE CLINIC AND GIVEN A PCN INJECTION FOR STREP. PATIENT STATES THE SYMPTOMS PERSISTED SO THE CLINIC PLACED HER ON AUGMENTIN X 10 DAYS. SHE STATES SHE BEGAN HAVING DIARRHEA APPROXIMATELY 10 DAYS AGO AND TODAY HAS VOMITING X 2 EPISODES. SHE IS COMPLAINING OF BEING WEAKER THAN NORMAL. Sepsis Screen: No Definite Risk Source of Information: Patient Exam Limitations: No Limitations History of Present Illness Date Seen by Provider: Oct 23, 2018 Time Seen by Provider: 18:30 Initial Comments 53-year-old female who presents to the emergency room with complaints of abdominal cramping, nausea, vomiting, diarrhea for the past 10 days. She reports that she has recently just finished her Augmentin prior to the diarrhea starting. She denies any use of zzea-tzc-tzimevb medications. She denies fevers. Timing/Duration: Other Severity/Quality: Cramping Location: Generalized Abdomen Radiation: No Radiation Associated Symptoms: Nausea/Vomiting Allergies and Home Medications Allergies Coded Allergies: No Known Drug Allergies (Unverified , 10/04/18) Home Medications Famotidine 20 Mg Tablet, 20 MG PO BID Prescribed by: NORTH DUGAN on 10/04/181718 Hydrocodone Bit/Acetaminophen 1 Tab Tab, 1 EACH PO Q4-6HR PRN for PAIN-MODERATE Prescribed by: BING QUINTANILLA on 10/23/182105 Ondansetron HCl 4 Mg Tab, 4 MG PO Q4H PRN for NAUSEA/VOMITING-1ST LINE Prescribed by: BING QUINTANILLA on 10/23/182105 Pantoprazole Sodium 40 Mg Tablet.dr, 40 MG PO DAILY Prescribed by: NORTH DUGAN on 10/04/181718 Past Qznvrvx-Zwcpcn-Zuidok Hx Patient Social History Alcohol Use: Denies Use Recreational Drug Use: No Type Used: Cigarettes 2nd Hand Smoke Exposure: No Recent Foreign Travel: No Contact w/Someone Who Travel: No Recent Infectious Disease Expo: No Recent Hopitalizations: No Immunizations Up To Date PED Vaccines UTD: Yes Seasonal Allergies Seasonal Allergies: No Past Medical History Surgeries: Yes Appendectomy, Section, Hysterectomy, Orthopedic Respiratory: No Cardiac: Yes Hypertension Neurological: No 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 oz. 95.336934lf; BMI Method:Actual Progress/Results/Core Measures Results/Orders Lab Results Laboratory Tests Test 10/23/18 18:27 10/23/18 19:28 Range/Units White Blood Count 9.7 4.3-11.0 10^3/uL Red Blood Count 4.83 4.35-5.85 10^6/uL Hemoglobin 15.5 11.5-16.0 G/DL Hematocrit 46 35-52 % Mean Corpuscular Volume 95 80-99 FL Mean Corpuscular Hemoglobin 32 25-34 PG Mean Corpuscular Hemoglobin Concent 34 32-36 G/DL Red Cell Distribution Width 13.8 10.0-14.5 % Platelet Count 385 130-400 10^3/uL Mean Platelet Volume 10.1 7.4-10.4 FL Neutrophils (%) (Auto) 63 42-75 % Lymphocytes (%) (Auto) 28 12-44 % Monocytes (%) (Auto) 7 0-12 % Eosinophils (%) (Auto) 2 0-10 % Basophils (%) (Auto) 0 0-10 % Neutrophils # (Auto) 6.1 1.8-7.8 X 10^3 Lymphocytes # (Auto) 2.7 1.0-4.0 X 10^3 Monocytes # (Auto) 0.7 0.0-1.0 X 10^3 Eosinophils # (Auto) 0.2 0.0-0.3 10^3/uL Basophils # (Auto) 0.0 0.0-0.1 10^3/uL Sodium Level 141 135-145 MMOL/L Potassium Level 3.6 3.6-5.0 MMOL/L Chloride Level 106 98-107 MMOL/L Carbon Dioxide Level 23 21-32 MMOL/L Anion Gap 12 5-14 MMOL/L Blood Urea Nitrogen 8 7-18 MG/DL Creatinine 0.83 0.60-1.30 MG/DL Estimat Glomerular Filtration Rate > 60 BUN/Creatinine Ratio 10 Glucose Level 107 H 70-105 MG/DL Calcium Level 10.2 H 8.5-10.1 MG/DL Corrected Calcium 9.8 8.5-10.1 MG/DL Total Bilirubin 0.4 0.1-1.0 MG/DL Aspartate Amino Transf (AST/SGOT) 23 5-34 U/L Alanine Aminotransferase (ALT/SGPT) 39 0-55 U/L Alkaline Phosphatase 180 H 40-136 U/L Total Protein 8.2 6.4-8.2 GM/DL Albumin 4.5 3.2-4.5 GM/DL Amylase Level 156 H 25-125 U/L Lipase 490 H 8-78 U/L Urine Color YELLOW Urine Clarity CLEAR Urine pH 6 5-9 Urine Specific [place] 1.010 L 1.016-1.022 Urine Protein NEGATIVE NEGATIVE Urine Glucose (UA) NEGATIVE NEGATIVE Urine Ketones NEGATIVE NEGATIVE Urine Nitrite NEGATIVE NEGATIVE Urine Bilirubin NEGATIVE NEGATIVE Urine Urobilinogen NORMAL NORMAL MG/DL Urine Leukocyte Esterase NEGATIVE NEGATIVE Urine RBC (Auto) NEGATIVE NEGATIVE Urine RBC NONE /HPF Urine WBC RARE /HPF Urine Squamous Epithelial Cells 2-5 /HPF Urine Crystals NONE /LPF Urine Bacteria NEGATIVE /HPF Urine Casts NONE /LPF Urine Mucus NEGATIVE /LPF Urine Culture Indicated NO My Orders Orders - BING QUINTANILLA Comprehensive Metabolic Panel (10/23/18 18:31) Lipase (10/23/18 18:31) Amylase (10/23/18 18:31) Ua Culture If Indicated (10/23/18 18:31) Ed Iv/Invasive Line Start (10/23/18 18:31) Cbc With Automated Diff (10/23/18 18:31) Ondansetron Injection (Zofran Injectio (10/23/18 18:45) Ns Iv 1000 Ml (Sodium Chloride 0.9%) (10/23/18 18:45) Stool Culture (10/23/18 18:31) C Difficile Ag + Toxin A/B. (10/23/18 18:31) Ct Abdomen/Pelvis W (10/23/18 20:01) Iohexol Injection (Omnipaque 350 Mg/Ml 1 (10/23/18 20:15) Received Contrast (Hold Metformin- Contr (10/23/18 20:15) Rx-Hydrocodone/Apap 5-325 Mg (Rx-Vicodin (10/23/18 21:15) Rx-Ondansetron Po (Rx-Zofran Po) (10/23/18 21:06) Medications Given in ED Current Medications Medications Dose Ordered Sig/Eugenio Route Start Time Stop Time Status Last Admin Dose Admin Ondansetron HCl 4 mg ONCE ONCE IVP 10/23/18 18:45 10/23/18 18:46 DC 10/23/18 18:44 4 MG Vital Signs/I&O 10/23/18 18:17 Temp 98.3 Pulse 78 Resp 20 B/P (MAP) 162/101 (121) Pulse Ox 96 O2 Delivery Room Air Blood Pressure Mean: 121 Departure Impression Primary Impression: Nausea vomiting and diarrhea Additional Impression: Elevated amylase and lipase Disposition: HOME, SELF-CARE Condition: Stable/Unchanged Departure-Patient Inst. Decision time for Depature: 21:04 Referrals: [facility]/ (PCP) Primary Care Physician EMELY QUINTERO APRN (Family) Primary Care Physician Patient Instructions: Pancreatitis (DC), Viral Gastroenteritis, Adult (DC) Add. Discharge Instructions: Clear liquid diet for 24 hours and advance to bland diet and so forth as tolerated. Antidiarrheals gxec-mjo-oiohhkr as directed by the bottle. Call tomorrow morning to schedule an appointment with Emely Quintero for reevaluation. Return back to the emergency room for worsening symptoms or concerns as needed. Take medications as directed. All discharge instructions reviewed with patient and/or family. Voiced understanding. Scripts Hydrocodone Bit/Acetaminophen (Hydrocodone/Acetaminophen 5/325mg Tablet) 1 Tab Tab 1 EACH PO Q4-6HR PRN for PAIN-MODERATE MDD 10, #10 TAB Prov: BING QUINTANILLA 10/23/18 Ondansetron HCl (Zofran) 4 Mg Tab 4 MG PO Q4H PRN for NAUSEA/VOMITING-1ST LINE, #14 TAB Prov: BING QUINTANILLA 10/23/18 BING QUINTANILLA Oct 23, 2018 19:04
[2018-10-23 19:37] LABS: BILIRUBIN,URINE NEGATIVE (NEGATIVE); CLARITY,URINE CLEAR; COLOR,URINE YELLOW; GLUCOSE, URINE (UA) NEGATIVE (NEGATIVE); KETONES,URINE NEGATIVE (NEGATIVE); LEUKOCYTE ESTERASE ,URINE NEGATIVE (NEGATIVE); NITRITE,URINE NEGATIVE (NEGATIVE); PH,URINE 6 (5-9); PROTEIN,URINE NEGATIVE (NEGATIVE); UROBILINOGEN,URINE NORMAL (NORMAL)
[2018-10-23 19:54] LABS: BACTERIA,URINE NEGATIVE /HPF; WBC,URINE RARE /HPF
--- NOTE | 2018-10-23 20:06 | NUR ---
PATIENT RESTING QUIETLY IN BED. SHE DENIES ANY NEEDS AT THIS TIME.
[2018-10-23] MEDS ORDERED: HOLD METFORMIN - RECEIVED CONTRAST 20 ML VIAL IV SCH (20:15)
[2018-10-23] MEDS ORDERED: IOHEXOL 350 MG/ML 100 ML (OMNIPAQUE 350) VIAL IV ONE (20:15)
--- NOTE | 2018-10-23 20:51 | Diagnostic Imaging Report ---
PROCEDURE: CT abdomen and pelvis with contrast. TECHNIQUE: Multiple contiguous axial images were obtained through the abdomen and pelvis after administration of intravenous contrast. Auto Exposure Controls were utilized during the CT exam to meet ALARA standards for radiation dose reduction. INDICATION: Upper and mid abdominal pain. Nausea, vomiting and diarrhea. FINDINGS: The lung bases demonstrate minimal dependent atelectasis and are otherwise clear. There is no pleural effusion. The liver demonstrates scattered nonenhancing hypodensities throughout the liver most compatible with small cysts. The patient is status post cholecystectomy. There is no biliary dilatation. The portal veins are patent. The spleen is normal in size. There is no adrenal mass. The kidneys enhance normally and are nonobstructed. The pancreas appears unremarkable. There is no adjacent fluid or fat stranding. Small and large bowel appear normal in caliber without evidence of obstruction. There is no focal abnormal bowel thickening or mucosal hyperenhancement. There are a few fluid-filled loops of the small bowel. The appendix is not visualized but there are no findings of inflammation within the right lower quadrant. There is no pelvic free fluid. There is no free air or abscess. There are no pathologically enlarged lymph nodes. Urinary bladder nondistended. The patient is status post hysterectomy. There is no pelvic mass. There is a normal caliber to the abdominal aorta. There is no acute or suspicious osseous abnormality within the lumbar spine. Compression of L5 appears chronic. IMPRESSION: 1. No CT evidence of an acute inflammatory obstructive process within the abdomen or pelvis. 2. No evidence of bowel obstruction. There are a few fluid-filled loops of small bowel with no abnormal mucosal hyperenhancement or bowel thickening. There is no evidence to suggest appendicitis. 3. Previous cholecystectomy without biliary dilatation. 4. The kidneys are nonobstructed. 5. No free air, free fluid, abscess or pathologic adenopathy. 6. Chronic L5 compression fracture. Dictated by: Dictated on workstation # [id number]
[2018-10-23] MEDS ORDERED: ACHD5005 PO (21:06)
[2018-10-23] MEDS ORDERED: RX-ONDANSETRON 4 MG ODT (ZOFRAN) PPK #4 PO STA (21:06)
[2018-10-23] MEDS ORDERED: ONDN4T PO (21:06)
[2018-10-23 21:15] VITALS: BP 121/67
[2018-10-23] MEDS ORDERED: RX-HYDROCODONE/APAP 5/325 MG #4 TAB PK PO PRN (21:15)
== END 2018-10-23 21:20 | disposition home or self-care (01) ==
LOC: EDUNIT# 18:10 → ER 18:11
DX: R11.2 Nausea with vomiting, unspecified (principal); R19.7 Diarrhea, unspecified; R74.8 Abnormal levels of other serum enzymes; I10 Essential (primary) hypertension; G40.909 Epilepsy, unspecified, not intractable, without status epilepticus; K21.9 Gastro-esophageal reflux disease without esophagitis; M79.7 Fibromyalgia; Z90.49 Acquired absence of other specified parts of digestive tract; Z90.710 Acquired absence of both cervix and uterus; Z98.890 Other specified postprocedural states
CPT/HCPCS: 36415; 74177; 80053; 81000; 82150; 83690; 85025; 87015; 87045; 87046; 87324; 87449; 87899

== ENCOUNTER 2019-02-12 04:33 | Emergency (ER) | payer SELFPAY ==
[~2019-02-12] VITALS: Ht 170.2 cm; Wt 97.5 kg
[~2019-02-12 04:33] MED LIST changes: +ACHD5005 PO; +ONDN4T PO
--- OUTSIDE RECORDS SUMMARY | 2019-02-12 04:41 | XMS REPORT | Continuity of Care Document ---
Author Organization Unknown Address Unknown Phone Unavailable Allergies There is no data. Medications There is no data. Problems There is no data. Procedures There is no data. Results Test Result Range TSH - 12/20/17 10:16 TSH 1.19 mIU/L NRG Encounters ACCT No. Visit Date/Time Discharge Status Pt. Type Provider Facility Loc./Unit Complaint [id number] 01/30/2019 12:20:00 01/30/2019 23:59:59 CLS Outpatient EMELY QUINTERO [facility] [id number] 12/20/2017 10:00:00 Document Registration
[2019-02-12] MEDS ORDERED: KETOROLAC 60 MG/2 ML VIAL IM STA (04:49)
--- NOTE | 2019-02-12 04:54 | ED Back Pain ---
General Chief Complaint: General Problems/Pain Stated Complaint: SCIATIC NERVE PAIN,RT & LEFT LEG PAIN Source of Information: Patient Exam Limitations: No Limitations History of Present Illness Date Seen by Provider: Feb 12, 2019 Time Seen by Provider: 04:42 Initial Comments Here with low back pain that radiates around the right side and down the right leg. Onset yesterday and worse today. States that it hurts on her right leg gives out when she stands just on that leg. She actually fell yesterday. Did not receive an injury from that. Onset actually Tuesday after having a few vomiting e pisodes. Does have history of low back pain and it will change from side to side. A few weeks ago was on a short course of steroids which helped quite a bit. Normally takes ibuprofen and gabapentin. Denies fever or chills but was noted to have low-grade temperature when she arrived. Last dose of ibuprofen was about 9 PM last night and she states that helped a little bit. Denies nausea or vomiting currently and has been able to eat and drink. Denies dysuria or diarrhea currently. Location: Lumbar Spine, Paraspinous Muscles Timing/Duration: 1-2 Days Severity: Moderate Pain/Injury Location: Back Radiation: Buttocks, Lower Legs, Upper Legs Method of Injury: Unknown Modifying Factors: Improves With Immobilization; Worse With Movement; Improves With Pain Medication Associated Symptoms: muscle spasms; No weakness, No numbness in legs/feet, No tingling in legs/feet, No sensory/motor loss; lower back pain; No loss of bladder control, No loss of bowel control Allergies and Home Medications Allergies Coded Allergies: No Known Drug Allergies (Unverified , 10/04/18) Home Medications Famotidine 20 Mg Tablet, 20 MG PO BID Prescribed by: NORTH DUGAN on 10/04/181718 Hydrocodone Bit/Acetaminophen 1 Tab Tab, 1 EACH PO Q4-6HR PRN for PAIN-MODERATE Prescribed by: BING QUINTANILLA on 10/23/182105 Ondansetron HCl 4 Mg Tab, 4 MG PO Q4H PRN for NAUSEA/VOMITING-1ST LINE Prescribed by: BING QUINTANILLA on 10/23/182105 Pantoprazole Sodium 40 Mg Tablet.dr, 40 MG PO DAILY Prescribed by: NORTH DUGAN on 10/04/181718 Patient Home Medication List Home Medication List Reviewed: Yes Review of Systems Constitutional: see HPI; No chills, No fever EENTM: no symptoms reported Respiratory: no symptoms reported Cardiovascular: no symptoms reported Gastrointestinal: see HPI Genitourinary: no symptoms reported Musculoskeletal: back pain, muscle pain Skin: no symptoms reported Psychiatric/Neurological: See HPI Past Fujfhxq-Ekwwaf-Tqapzp Hx Past Med/Social Hx: Reviewed Nursing Past Med/Soc Hx Patient Social History Alcohol Use: Denies Use Recreational Drug Use: No Smoking Status: Current Everyday Smoker Type Used: Cigarettes 2nd Hand Smoke Exposure: No Recent Foreign Travel: No Contact w/Someone Who Travel: No Recent Hopitalizations: No Immunizations Up To Date PED Vaccines UTD: Yes Seasonal Allergies Seasonal Allergies: No Past Medical History Surgeries: Yes Appendectomy, Section, Hysterectomy, Orthopedic Respiratory: No Cardiac: Yes Hypertension Neurological: No 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 oz. 95.763865bm; BMI Method:Actual General Appearance: WD/WN, Mild Distress Neck: Full Range of Motion, Supple Cardiovascular: Regular Rate, Rhythm, No Murmur Respiratory: Lungs Clear, Normal Breath Sounds Gastrointestinal: Non Tender, Soft Back: Muscle Spasm; No Vertebral Tenderness; Other (tender right lumbar/SI joint area) Extremity: Normal Range of Motion, Non Tender Neurologic/Psychiatric: Alert, Oriented x3, No Motor/Sensory Deficits Skin: Normal Color, Warm/Dry Progress/Results/Core Measures Results/Orders Lab Results Laboratory Tests Test 02/12/19 04:50 Range/Units Urine Color YELLOW Urine Clarity CLEAR Urine pH 5 5-9 Urine Specific [place] 1.010 L 1.016-1.022 Urine Protein NEGATIVE NEGATIVE Urine Glucose (UA) NEGATIVE NEGATIVE Urine Ketones NEGATIVE NEGATIVE Urine Nitrite NEGATIVE NEGATIVE Urine Bilirubin NEGATIVE NEGATIVE Urine Urobilinogen NORMAL NORMAL MG/DL Urine Leukocyte Esterase 1+ H NEGATIVE Urine RBC (Auto) NEGATIVE NEGATIVE Urine RBC NONE /HPF Urine WBC RARE /HPF Urine Squamous Epithelial Cells 5-10 /HPF Urine Crystals NONE /LPF Urine Bacteria TRACE /HPF Urine Casts NONE /LPF Urine Mucus NEGATIVE /LPF Urine Culture Indicated NO My Orders Orders - MYA TOBIN MD Ketorolac Injection (Toradol Injection) (02/12/19 04:49) Prednisone Tablet (Deltasone Tablet) (02/12/19 05:00) Hydrocodone/Apap 7.5/325 Tab (Lortab 7. (02/12/19 05:00) Ua Culture If Indicated (02/12/19 04:54) Medications Given in ED Current Medications Medications Dose Ordered Sig/Eugenio Route Start Time Stop Time Status Last Admin Dose Admin Acetaminophen/ Hydrocodone Bitart 1 ea ONCE ONCE PO 02/12/19 05:00 02/12/19 05:01 DC 02/12/19 05:01 1 EA Prednisone 60 mg ONCE ONCE PO 02/12/19 05:00 02/12/19 05:01 DC 02/12/19 05:01 60 MG Vital Signs/I&O 02/12/19 04:38 Temp 100.0 Pulse 91 Resp 20 B/P (MAP) 143/89 (107) Pulse Ox 96 O2 Delivery Room Air Progress Progress Note : Progress Note Seen and evaluated. Reviewed history including lumbar MRI from January of last year. Toradol 60 mg IM, prednisone 60 mg by mouth and Lortab 7.5 mg by mouth ordered. We will check UA given that she has low-grade fever. Monitor patient. 0534: Pain in the little better. States she feels like she got home. Discharged home with return precautions. Patient verbalize understanding instructions and agreement with plan. Departure Impression Primary Impression: Sciatica of right side Disposition: HOME, SELF-CARE Condition: Improved Departure-Patient Inst. Decision time for Depature: 05:30 Referrals: [facility] (PCP) Primary Care Physician EMELY QUINTERO APRN (Family) Primary Care Physician Patient Instructions: Sciatica (DC) Add. Discharge Instructions: All discharge instructions reviewed with patient and/or family. Voiced understanding. Take medications as directed. Follow-up with your doctor in a few days for recheck. You may take ibuprofen 800 mg every 8 hours as needed for pain. You may also take Tylenol/acetaminophen 1000 mg every 8 hours as needed for pain. Return for worse pain, fever, vomiting, weakness, breathing problems, problems walking or going to the bathroom or other concerns as needed. You may use ycrx-vob-oneceji Icy Hot with lidocaine patches, Aspercreme with lidocaine patches, Salonpas with lidocaine patches for similar items to area of concern per package directions. Scripts Prednisone (Prednisone) 20 Mg Tab 40 MG PO DAILY, #10 TAB 0 Refills Prov: MYA TOBIN MD 02/12/19 Work/School Note: Work Release Form Date Seen in the Emergency Department: Feb 12, 2019 Return to Work: Feb 13, 2019 Restrictions: No Restrictions MYA TOBIN MD Feb 12, 2019 04:54
[2019-02-12 05:00] LABS: BILIRUBIN,URINE NEGATIVE (NEGATIVE); CLARITY,URINE CLEAR; COLOR,URINE YELLOW; GLUCOSE, URINE (UA) NEGATIVE (NEGATIVE); KETONES,URINE NEGATIVE (NEGATIVE); LEUKOCYTE ESTERASE ,URINE 1+ (NEGATIVE); NITRITE,URINE NEGATIVE (NEGATIVE); PH,URINE 5 (5-9); PROTEIN,URINE NEGATIVE (NEGATIVE); UROBILINOGEN,URINE NORMAL (NORMAL)
[2019-02-12] MEDS ORDERED: HYDROcodone/APAP 7.5 MG/325 MG (LORTAB, LORCET PLUS) TABLET PO ONE (05:00)
[2019-02-12] MEDS ORDERED: predniSONE 20 MG TAB PO ONE (05:00)
[2019-02-12 05:09] LABS: BACTERIA,URINE TRACE /HPF; WBC,URINE RARE /HPF
[2019-02-12] MEDS ORDERED: PRD20T PO (05:31)
[2019-02-12 05:38] VITALS: BP 139/87
== END 2019-02-12 05:40 | disposition home or self-care (01) ==
LOC: EDUNIT# 04:33 → ER 04:36
DX: M54.41 Lumbago with sciatica, right side (principal); I10 Essential (primary) hypertension; G40.909 Epilepsy, unspecified, not intractable, without status epilepticus; K21.9 Gastro-esophageal reflux disease without esophagitis; M79.7 Fibromyalgia; F17.210 Nicotine dependence, cigarettes, uncomplicated; Z90.49 Acquired absence of other specified parts of digestive tract; Z90.710 Acquired absence of both cervix and uterus
CPT/HCPCS: 81000; 99284

== ENCOUNTER 2019-02-14 20:45 | Emergency (ER) | payer SELFPAY ==
[~2019-02-14] VITALS: Ht 170.2 cm; Wt 97.5 kg
[~2019-02-14 20:45] MED LIST changes: +PRD20T PO
[2019-02-14] MEDS ORDERED: fentaNYL INJECTION 100 MCG/2 ML AMP IVP ONE (21:15)
[2019-02-14] MEDS ORDERED: NS IV 1000 ML 1,000 ML IV ONE (21:35)
[2019-02-14 21:39] LABS: BASOPHILS % (AUTO) 0 % (0-10); EOSINOPHILS % (AUTO) 0 % (0-10); HEMATOCRIT 34 % (35-52); HEMOGLOBIN 11.6 G/DL (11.5-16.0); LYMPHOCYTES % (AUTO) 24 % (12-44); MEAN CORPUSCULAR HEMOGLOBIN 35 PG (25-34); MEAN CORPUSCULAR HGB CONC 34 G/DL (32-36); MEAN CORPUSCULAR VOLUME 100 FL (80-99); MEAN PLATELET VOLUME 9.5 FL (7.4-10.4); MONOCYTES # (AUTO) 0.5 X 10^3 (0.0-1.0); MONOCYTES % (AUTO) 6 % (0-12); NEUTROPHILS % (AUTO) 70 % (42-75); PLATELET COUNT 368 10^3/uL (130-400); RED CELL DISTRIBUTION WIDTH 13.2 % (10.0-14.5); WHITE BLOOD COUNT 8.6 10^3/uL (4.3-11.0)
[2019-02-14 22:03] LABS: ALBUMIN 3.8 GM/DL (3.2-4.5); BILIRUBIN,TOTAL 0.2 MG/DL (0.1-1.0); CALCIUM 8.8 MG/DL (8.5-10.1); CREATININE SERUM 0.97 MG/DL (0.60-1.30); POTASSIUM 3.7 MMOL/L (3.6-5.0); TOTAL PROTEIN 6.8 GM/DL (6.4-8.2)
--- NOTE | 2019-02-14 22:08 | ED Back Pain ---
General Chief Complaint: Back Problems Stated Complaint: BACK PAIN,R LEG NUMBNESS Nursing Triage Note: TO ED ROOM 5 VIA W/C AND HAS PERSONAL CANE WITH HER AT THIS TIME. C/O BACK AND RIGHT CALF AND FOOT NUMBNESS WHICH SHE STATES IS NEW. HX OF CHRONIC BACK PAIN/SCIATICA PAIN. SEE 2 DAYS AGO IN THIS ER AND GIVEN RX FOR PREDNISONE PO. RECENTLY GABAPENTIN INCREASED TO 800MG TID AND STARTED ON CYMBALTA BY PCP. ONLY TAKING IBUPROFEN FOR PAIN. STATES SHE "CANNOT HANDLE THE PAIN" ANYMORE AND IS SUPPOSED TO WORK TOMORROW, BUT "CANNOT GET OUT OF BED" ON HER OWN. DENIES BOWEL OR BLADDER PROBLEMS. Nursing Sepsis Screen: No Definite Risk Source of Information: Patient, Old Records Exam Limitations: No Limitations History of Present Illness Date Seen by Provider: Feb 14, 2019 Time Seen by Provider: 20:50 Initial Comments This 54-year-old woman presents to the emergency room with complaints of lower back pain and right hip pain with associated radicular symptoms down the right leg. She has paresthesia and numbness extending down towards the right calf and right foot. She has a known history of bulging disc at L4-L5 based on MRI in 2018. She was seen in the ER 2 days ago and started on prednisone therapy. Her gabapentin was also increased a couple days ago and she was recently started on Cymbalta. Despite these interventions her symptoms have worsened. She also has had low-grade fever up to 100.5. She feels shaky and chilled. There is no known source of infection. She has not been able to schedule an appointment with her primary care provider in a reasonable time frame. Pain seems to be originating from the lower lumbar and sacral regions as well as the right lateral hip area she denies any bowel or bladder dysfunction. She is brought to the exam room by wheelchair. Her primary care provider is Emely Apple. Allergies and Home Medications Allergies Coded Allergies: No Known Drug Allergies (Unverified , 10/04/18) Home Medications Cyclobenzaprine HCl 10 Mg Tablet, 10 MG PO Q8H PRN for SPASMS Prescribed by: LUIS ELLER on 02/14/19 6293 Famotidine 20 Mg Tablet, 20 MG PO BID Prescribed by: NORTH DUGAN on 10/04/18 1719 Hydrocodone Bit/Acetaminophen 1 Tab Tab, 1 EACH PO Q4-6HR PRN for PAIN-MODERATE Prescribed by: BING QUINTANILLA on 10/23/182105 Ondansetron HCl 4 Mg Tab, 4 MG PO Q4H PRN for NAUSEA/VOMITING-1ST LINE Prescribed by: BING QUINTANILLA on 10/23/182105 Oxycodone HCl/Acetaminophen 1 Each Tablet, 1-2 TAB PO Q6H PRN for PAIN-MODERATE TO SEVERE Prescribed by: LUIS ELLER on 02/14/192251 Pantoprazole Sodium 40 Mg Tablet.dr, 40 MG PO DAILY Prescribed by: NORTH DUGAN on 10/04/18 171 Prednisone 20 Mg Tab, 40 MG PO DAILY Prescribed by: MYA TOBIN on 02/12/19 0531 Patient Home Medication List Home Medication List Reviewed: Yes Review of Systems Constitutional: see HPI EENTM: no symptoms reported Respiratory: no symptoms reported Cardiovascular: no symptoms reported Gastrointestinal: no symptoms reported Genitourinary: no symptoms reported : No Musculoskeletal: see HPI Skin: no symptoms reported Psychiatric/Neurological: See HPI Past Vkklpbe-Lpdhmd-Cttrjk Hx Patient Social History Alcohol Use: Denies Use Recreational Drug Use: No Type Used: Electronic/Vapor 2nd Hand Smoke Exposure: No Recent Foreign Travel: No Contact w/Someone Who Travel: No Recent Infectious Disease Expo: No Recent Hopitalizations: No Immunizations Up To Date Tetanus Booster (TDap): Less than 5yrs PED Vaccines UTD: Yes Seasonal Allergies Seasonal Allergies: No Past Medical History Surgeries: Yes Appendectomy, Section, Hysterectomy, Orthopedic Respiratory: No Cardiac: Yes Hypertension Neurological: No Seizure Disorder : No Reproductive Disorders: No 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 oz. 97.328458hm; BMI Method:Stated General Appearance: WD/WN, Mild Distress HEENT: PERRL/EOMI, Normal ENT Inspection Neck: Normal Inspection Cardiovascular: Regular Rate, Rhythm, No Edema, No Murmur Respiratory: Lungs Clear, Normal Breath Sounds, No Accessory Muscle Use, No Respiratory Distress Gastrointestinal: Normal Bowel Sounds, Non Tender, Soft Back: Normal Inspection, Other (tenderness over the L5-S1 region and in the SI joints) Extremity: No Pedal Edema, Other (tenderness over the right lateral hip. No significant pain in the joint with rotation of the hip. Sensation intact throughout the right lower extremity. 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 Norm as Tested Skin: Normal Color, Warm/Dry Progress/Results/Core Measures Results/Orders Lab Results Laboratory Tests Test 02/14/19 21:25 02/14/19 22:20 Range/Units White Blood Count 8.6 4.3-11.0 10^3/uL Red Blood Count 3.36 L 4.35-5.85 10^6/uL Hemoglobin 11.6 11.5-16.0 G/DL Hematocrit 34 L 35-52 % Mean Corpuscular Volume 100 H 80-99 FL Mean Corpuscular Hemoglobin 35 H 25-34 PG Mean Corpuscular Hemoglobin Concent 34 32-36 G/DL Red Cell Distribution Width 13.2 10.0-14.5 % Platelet Count 368 130-400 10^3/uL Mean Platelet Volume 9.5 7.4-10.4 FL Neutrophils (%) (Auto) 70 42-75 % Lymphocytes (%) (Auto) 24 12-44 % Monocytes (%) (Auto) 6 0-12 % Eosinophils (%) (Auto) 0 0-10 % Basophils (%) (Auto) 0 0-10 % Neutrophils # (Auto) 6.0 1.8-7.8 X 10^3 Lymphocytes # (Auto) 2.0 1.0-4.0 X 10^3 Monocytes # (Auto) 0.5 0.0-1.0 X 10^3 Eosinophils # (Auto) 0.0 0.0-0.3 10^3/uL Basophils # (Auto) 0.0 0.0-0.1 10^3/uL Erythrocyte Sedimentation Rate 39 H 0-30 MM/HR Sodium Level 142 135-145 MMOL/L Potassium Level 3.7 3.6-5.0 MMOL/L Chloride Level 110 H 98-107 MMOL/L Carbon Dioxide Level 19 L 21-32 MMOL/L Anion Gap 13 5-14 MMOL/L Blood Urea Nitrogen 9 7-18 MG/DL Creatinine 0.97 0.60-1.30 MG/DL Estimat Glomerular Filtration Rate 60 BUN/Creatinine Ratio 9 Glucose Level 94 70-105 MG/DL Calcium Level 8.8 8.5-10.1 MG/DL Corrected Calcium 9.0 8.5-10.1 MG/DL Total Bilirubin 0.2 0.1-1.0 MG/DL Aspartate Amino Transf (AST/SGOT) 16 5-34 U/L Alanine Aminotransferase (ALT/SGPT) 32 0-55 U/L Alkaline Phosphatase 167 H 40-136 U/L C-Reactive Protein High Sensitivity 0.48 0.00-0.50 MG/DL Total Protein 6.8 6.4-8.2 GM/DL Albumin 3.8 3.2-4.5 GM/DL Urine Color YELLOW Urine Clarity CLEAR Urine pH 6.5 5-9 Urine Specific [place] 1.010 L 1.016-1.022 Urine Protein NEGATIVE NEGATIVE Urine Glucose (UA) NEGATIVE NEGATIVE Urine Ketones NEGATIVE NEGATIVE Urine Nitrite NEGATIVE NEGATIVE Urine Bilirubin NEGATIVE NEGATIVE Urine Urobilinogen NORMAL NORMAL MG/DL Urine Leukocyte Esterase NEGATIVE NEGATIVE Urine RBC (Auto) NEGATIVE NEGATIVE Urine RBC NONE /HPF Urine WBC NONE /HPF Urine Squamous Epithelial Cells NONE /HPF Urine Crystals NONE /LPF Urine Bacteria TRACE /HPF Urine Casts NONE /LPF Urine Mucus NEGATIVE /LPF Urine Culture Indicated NO My Orders Orders - LUIS RODRIGUEZ MD Cbc With Automated Diff (02/14/19 21:05) Comprehensive Metabolic Panel (02/14/19 21:05) Hs C Reactive Protein (02/14/19 21:05) Ua Culture If Indicated (02/14/19 21:05) Ed Iv/Invasive Line Start (02/14/19 21:05) Fentanyl Injection (Sublimaze Injection (02/14/19 21:15) Erythrocyte Sedimentation Rate (02/14/19 21:08) Ns Iv 1000 Ml (Sodium Chloride 0.9%) (02/14/19 21:35) Ketorolac Injection (Toradol Injection) (02/14/19 22:30) Oxycodone/Apap 5/325mg Tablet (Percocet (02/14/19 22:30) Rx-Oxycodone/Apap 5-325 Mg (Rx-Percocet (02/14/19 23:00) Medications Given in ED Current Medications Medications Dose Ordered Sig/Eugenio Route Start Time Stop Time Status Last Admin Dose Admin Fentanyl Citrate 75 mcg ONCE ONCE IVP 02/14/19 21:15 02/14/19 21:16 DC 02/14/19 21:26 75 MCG Ketorolac Tromethamine 30 mg ONCE ONCE IVP 02/14/19 22:30 02/14/19 22:31 DC 02/14/19 22:40 30 MG Oxycodone/ Acetaminophen 1 ea Q4H PRN PO 02/14/19 23:00 02/14/19 23:21 DC 02/14/19 23:15 1 EA Oxycodone/ Acetaminophen 1 tab ONCE ONCE PO 02/14/19 22:30 02/14/19 22:31 DC 02/14/19 22:40 1 TAB Sodium Chloride 1,000 ml @ 0 mls/hr Q0M ONCE IV 02/14/19 21:35 02/14/19 21:37 DC 02/14/19 22:05 1,000 MLS/HR Vital Signs/I&O 02/14/19 02/14/19 20:55 23:20 Temp 100.5 99.0 Pulse 84 67 Resp 18 18 B/P (MAP) 197/97 (130) 153/81 (105) Pulse Ox 97 02/15/19 00:00 Intake Total 1000 ml Balance 1000 ml Blood Pressure Mean: 130 Progress Progress Note #1: Time: 22:07 Progress Note Patient was seen and examined. Exam was difficult due to her pain. She was given fentanyl 75 g by IV route and reexamined. Focus of pain seem to be in the L5-S1 region and over the SI joints as well as the right lateral hip. Labs were obtained because of patient's persistent low-grade fever. Imaging may be considered pending evaluation of lab results. Progress Note #2: Time: 00:42 Progress Note Unremarkable CBC, CRP, and ESR suggest bacterial infection is very unlikely. Fevers likely due to a viral source. Patient was treated initially with fentanyl. This was followed by Toradol and Percocet. Pain was improving prior to discharge. See discharge instructions for my discussion with the patient. Patient seems to have a combination of issues. She has pain in the lower lumbar spine and SI joint areas with associated radicular symptoms. She also seems to have tenderness directly over the right hip bursa over the greater trochanter. She may have some bursitis causing pain in this region. Departure Impression Primary Impression: Lumbar radiculopathy Additional Impressions: Sacroiliac pain Right hip pain Febrile illness Disposition: 01 HOME, SELF-CARE Condition: Improved Departure-Patient Inst. Referrals: [facility] [place] (PCP) Primary Care Physician EMELY APPLE APRN (Family) Primary Care Physician Patient Instructions: Radiculopathy (DC) Add. Discharge Instructions: I suspect your fever is caused by viral illness. You may continue taking ibuprofen up to 600 mg every 6 hours for fever or pain. You may continue using your other medications such as Lyrica and gabapentin for pain management. Add Percocet as prescribed for pain not controlled by your other medications. You may also finish the prednisone prescription as previously directed. Follow-up with your primary care provider soon as possible. Please call tomorrow and asked to have a sooner appointment for ER follow-up. Repeat imaging and/or referral to a digital asset specialist may be necessary. Return to the emergency room if you have worsening symptoms, especially if you develop numbness in the groin region, true muscle weakness of the lower extremities, escalating pain despite treatment, or difficulty controlling bowels or bladder. All discharge instructions reviewed with patient and/or family. Voiced understanding. Scripts Cyclobenzaprine HCl (Cyclobenzaprine HCl) 10 Mg Tablet 10 MG PO Q8H PRN for SPASMS, #10 TAB 0 Refills Prov: LUIS RODRIGUEZ MD 02/14/19 Oxycodone HCl/Acetaminophen (Percocet 5-325 mg Tablet) 1 Each Tablet 1-2 TAB PO Q6H PRN for PAIN-MODERATE TO SEVERE MDD 6 TABS, #15 TAB Prov: LUIS RODRIGUEZ MD 02/14/19 Work/School Note: Work Release Form Date Seen in the Emergency Department: Feb 14, 2019 Return to Work: Feb 17, 2019 Other Restrictions Listed Below: No lifting over 20 pounds until cleared by a physician. Copy Copies To 1: JOY KIRBY JOSHUA T MD Feb 14, 2019 22:08
[2019-02-14 22:17] LABS: ERYTHROCYTE SEDIMENTATION RATE 39 MM/HR (0-30)
[2019-02-14 22:25] LABS: BILIRUBIN,URINE NEGATIVE (NEGATIVE); CLARITY,URINE CLEAR; COLOR,URINE YELLOW; GLUCOSE, URINE (UA) NEGATIVE (NEGATIVE); KETONES,URINE NEGATIVE (NEGATIVE); LEUKOCYTE ESTERASE ,URINE NEGATIVE (NEGATIVE); NITRITE,URINE NEGATIVE (NEGATIVE); PH,URINE 6.5 (5-9); PROTEIN,URINE NEGATIVE (NEGATIVE); UROBILINOGEN,URINE NORMAL (NORMAL)
[2019-02-14] MEDS ORDERED: oxyCODONE/APAP 5/325MG (PERCOCET 5) TABLET PO ONE (22:30)
[2019-02-14] MEDS ORDERED: KETOROLAC 30 MG/ML VIAL IVP ONE (22:30)
[2019-02-14 22:35] LABS: BACTERIA,URINE TRACE /HPF
[2019-02-14] MEDS ORDERED: CYCL10TA9 PO (22:52)
[2019-02-14] MEDS ORDERED: OXYC1TAB87 PO (22:52)
[2019-02-14] MEDS ORDERED: RX-OXYCODONE/APAP 5-325 MG #4 TAB PK PO PRN (23:00)
[2019-02-14 23:20] VITALS: BP 153/81
== END 2019-02-14 23:21 | disposition home or self-care (01) ==
LOC: EDUNIT# 20:45 → ER 20:46
DX: M54.16 Radiculopathy, lumbar region (principal); M53.3 Sacrococcygeal disorders, not elsewhere classified; M25.551 Pain in right hip; R50.9 Fever, unspecified; I10 Essential (primary) hypertension; G40.909 Epilepsy, unspecified, not intractable, without status epilepticus; K21.9 Gastro-esophageal reflux disease without esophagitis; M79.7 Fibromyalgia; Z90.49 Acquired absence of other specified parts of digestive tract; Z90.710 Acquired absence of both cervix and uterus
CPT/HCPCS: 36415; 80053; 81000; 85025; 85652; 86141

== ENCOUNTER → 2019-02-22 | Outpatient (CLI) | payer SELFPAY ==
[~2019-02-22] MED LIST changes: +CYCL10TA9 PO; +OXYC1TAB87 PO
--- NOTE | 2019-02-22 17:18 | Diagnostic Imaging Report ---
PROCEDURE: MRI lumbar spine. TECHNIQUE: Multiplanar, multisequence MRI of the lumbar spine was performed without contrast. INDICATION: Back pain. COMPARISON: Comparison made with prior examination 01/09/2018. FINDINGS: The alignment of the lumbar spine is normal. The vertebral body heights are well-maintained. There is no spondylolysis or spondylolisthesis. No fractures are identified. Conus medullaris is seen at L1 and is normal in appearance. The T12-L1 disc is unremarkable. At L1-2 there is some minimal annular bulging and mild facet disease. There is very slight effacement of the ventral thecal sac. There is no significant neural foraminal encroachment. At L2-3 there is minimal annular bulging and mild facet disease. There is again slight effacement of the ventral thecal sac and no significant neural foraminal encroachment. At L3-4 there is mild annular bulging, facet disease and thickening of the ligamentum flavum. There is mild central spinal stenosis. There is minimal encroachment upon the lateral recess bilaterally. There is moderate left and mild right neural foraminal encroachment. At L4-5 there is mild broad-based annular bulging, facet disease and thickening of the ligamentum flavum. There is mild to moderate central spinal stenosis with some encroachment upon the lateral recess bilaterally and moderate bilateral neural foraminal encroachment. There are also Modic changes in the endplates. At L5-S1 there is broad-based annular bulging somewhat more prominent in the right paramedian and lateral distribution. There is encroachment on the right lateral recess. There is moderate right neural foraminal encroachment and mild left neural foraminal encroachment. Abdominal aorta is nonaneurysmal. Kidneys are normal in appearance. IMPRESSION: Diffuse lumbar spondylosis and multilevel degenerative disc disease as detailed above. Dictated by: Dictated on workstation # [id number]
== END ==
LOC: RAD 14:51
PROVIDERS: ATTEND Nurse Practitioner Primary Care
DX: M54.41 Lumbago with sciatica, right side (principal); M51.26 Other intervertebral disc displacement, lumbar region; M48.061 Spinal stenosis, lumbar region without neurogenic claudication; I71.4 Abdominal aortic aneurysm, without rupture; M47.816 Spondylosis without myelopathy or radiculopathy, lumbar region; M51.36 Other intervertebral disc degeneration, lumbar region
CPT/HCPCS: 72148

== ENCOUNTER 2020-04-15 19:28 | Emergency (ER) | payer SELFPAY ==
[~2020-04-15] VITALS: Ht 170 cm; Wt 102.0 kg
[2020-04-15 19:56] LABS: BASOPHILS # (AUTO) 0.1 10^3/uL (0.0-0.1); BASOPHILS % (AUTO) 1 % (0-10); EOSINOPHILS # (AUTO) 0.3 10^3/uL (0.0-0.3); EOSINOPHILS % (AUTO) 3 % (0-10); HEMATOCRIT 40 % (35-52); HEMOGLOBIN 13.4 g/dL (11.5-16.0); LYMPHOCYTES % (AUTO) 35 % (12-44); MEAN CORPUSCULAR HEMOGLOBIN 33 pg (25-34); MEAN CORPUSCULAR HGB CONC 33 g/dL (32-36); MEAN CORPUSCULAR VOLUME 99 fL (80-99); MEAN PLATELET VOLUME 9.6 fL (9.0-12.2); MONOCYTES # (AUTO) 0.8 10^3/uL (0.0-1.0); MONOCYTES % (AUTO) 7 % (0-12); NEUTROPHILS # (AUTO) 6.1 10^3/uL (1.8-7.8); NEUTROPHILS % (AUTO) 54 % (42-75); PLATELET COUNT 369 10^3/uL (130-400); WHITE BLOOD COUNT 11.3 10^3/uL (4.3-11.0)
[2020-04-15] MEDS ORDERED: KETOROLAC 30 MG/ML VIAL IVP ONE (20:00)
[2020-04-15] MEDS ORDERED: ASPIRIN 81 MG CHEW (CHILDREN'S ASA) PO ONE (20:00)
--- NOTE | 2020-04-15 20:00 | NUR ---
PT ARRIVES BY POV WITH C/O CHEST PAIN; SHE STATES IT STARTED AFTER SHE HAD ONSET OF "VERTIGO". SHE STATES THAT SHE WENT TO THE STORE TO GET SOMETHING FOR THE VERTIGO WHEN SHE HAD THE ONSET OF SHARP CP THAT WENT THROUGH TO HER BACK AND WORSENED WITH DEEP INSPIRATION. PT STATES HER PAIN ALSO WORSENED WHEN THIS NURSE SAT HER UP IN FULL FOWLERS POSITION. IV AND LABS DRAWN; EKG OBTAINED. ERP AWARE OF PATIENT AND ORDERS RECEIVED. PT ON MONITOR. WILL CONTINUE TO MONITOR.
--- NOTE | 2020-04-15 20:05 | ED Chest Pain ---
General Chief Complaint: Chest Pain Stated Complaint: CP Nursing Triage Note: pt arrives with chest pain that started after vertigo. Describes as sharp and goes through to her back; rates 8/10 and worsens with deep inspiration. Nursing Sepsis Screen: No Definite Risk Source: patient Exam Limitations: no limitations History of Present Illness Date Seen by Provider: Apr 15, 2020 Time Seen by Provider: 20:04 Initial Comments to ER with reports of vertigo that began earlier today. She went toward his medicine for this and while at [facility] she had a squeezing sharp-type pain in the lower center of her chest is worsened by movement and deep breathing. She does smoke. Not on estrogen no history of DVT. No unilateral leg swelling. Timing/Duration: 1-3 hours Severity/Quality: moderate Location: central Radiation: no radiation ASA po SET UP MECHANIC COATING MACHINES: No NTG SL SET UP MECHANIC COATING MACHINES: No Associated Symptoms: No shortness of breath Allergies and Home Medications Allergies Coded Allergies: No Known Drug Allergies (Unverified , 10/04/18) Home Medications Cyclobenzaprine HCl 10 Mg Tablet, 10 MG PO Q8H PRN for SPASMS Prescribed by: LUIS ELLER on 02/14/192251 Famotidine 20 Mg Tablet, 20 MG PO BID Prescribed by: NORTH DUGAN on 10/04/181718 Hydrocodone Bit/Acetaminophen 1 Tab Tab, 1 EACH PO Q4-6HR PRN for PAIN-MODERATE Prescribed by: BING QUINTANILLA on 10/23/182105 Ondansetron HCl 4 Mg Tab, 4 MG PO Q4H PRN for NAUSEA/VOMITING-1ST LINE Prescribed by: BING QUINTANILLA on 10/23/182105 Oxycodone HCl/Acetaminophen 1 Each Tablet, 1-2 TAB PO Q6H PRN for PAIN-MODERATE TO SEVERE Prescribed by: LUIS ELLER on 02/14/192251 Pantoprazole Sodium 40 Mg Tablet.dr, 40 MG PO DAILY Prescribed by: NORTH DUGAN on 10/04/181718 Prednisone 20 Mg Tab, 40 MG PO DAILY Prescribed by: MYA TOBIN on 02/12/19 0531 Patient Home Medication List Home Medication List Reviewed: Yes Review of Systems Review of Systems Constitutional: see HPI EENTM: No Symptoms Reported Respiratory: No Symptoms Reported Cardiovascular: See HPI, Chest Pain Gastrointestinal: See HPI, Abdominal Pain Genitourinary: No Symptoms Reported Musculoskeletal: no symptoms reported Skin: no symptoms reported Psychiatric/Neurological: No Symptoms Reported Endocrine: No Symptoms Reported Past Gjsecun-Pwlsia-Hyzbzo Hx Patient Social History Type Used: Electronic/Vapor 2nd Hand Smoke Exposure: No Recent Foreign Travel: No Contact w/Someone Who Travel: No Recent Infectious Disease Expo: No Recent Hopitalizations: No Immunizations Up To Date Tetanus Booster (TDap): Less than 5yrs PED Vaccines UTD: Yes Seasonal Allergies Seasonal Allergies: No Past Medical History Surgeries: Yes Appendectomy, Section, Hysterectomy, Orthopedic Respiratory: No Cardiac: Yes Hypertension Neurological: No Seizure Disorder Reproductive Disorders: 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 oz. 97.361313su; 35.00 BMI Method:Stated General Appearance: No Apparent Distress, WD/WN Respiratory: Lungs Clear, Normal Breath Sounds, No Accessory Muscle Use, No Respiratory Distress Cardiovascular: Normal Peripheral Pulses, Tachycardia Gastrointestinal: Normal Bowel Sounds, Non Tender, Soft Extremity: Normal Capillary Refill, Normal Inspection Neurologic/Psychiatric: Alert, Oriented x3 Skin: Normal Color, Warm/Dry Progress/Results/Core Measures Results/Orders Lab Results Laboratory Tests Test 04/15/20 19:40 04/15/20 21:20 Range/Units White Blood Count 11.3 H 4.3-11.0 10^3/uL Red Blood Count 4.07 3.80-5.11 10^6/uL Hemoglobin 13.4 11.5-16.0 g/dL Hematocrit 40 35-52 % Mean Corpuscular Volume 99 80-99 fL Mean Corpuscular Hemoglobin 33 25-34 pg Mean Corpuscular Hemoglobin Concent 33 32-36 g/dL Red Cell Distribution Width 13.4 10.0-14.5 % Platelet Count 369 130-400 10^3/uL Mean Platelet Volume 9.6 9.0-12.2 fL Immature Granulocyte % (Auto) 0 % Neutrophils (%) (Auto) 54 42-75 % Lymphocytes (%) (Auto) 35 12-44 % Monocytes (%) (Auto) 7 0-12 % Eosinophils (%) (Auto) 3 0-10 % Basophils (%) (Auto) 1 0-10 % Neutrophils # (Auto) 6.1 1.8-7.8 10^3/uL Lymphocytes # (Auto) 4.0 1.0-4.0 10^3/uL Monocytes # (Auto) 0.8 0.0-1.0 10^3/uL Eosinophils # (Auto) 0.3 0.0-0.3 10^3/uL Basophils # (Auto) 0.1 0.0-0.1 10^3/uL Immature Granulocyte # (Auto) 0.1 0.0-0.1 10^3/uL Prothrombin Time 12.3 12.2-14.7 SEC INR Comment 0.9 0.8-1.4 Activated Partial Thromboplast Time 38 H 24-35 SEC D-Dimer 1.44 H 0.00-0.49 UG/ML Sodium Level 139 135-145 MMOL/L Potassium Level 3.7 3.6-5.0 MMOL/L Chloride Level 106 98-107 MMOL/L Carbon Dioxide Level 21 21-32 MMOL/L Anion Gap 12 5-14 MMOL/L Blood Urea Nitrogen 10 7-18 MG/DL Creatinine 0.92 0.60-1.30 MG/DL Estimat Glomerular Filtration Rate > 60 BUN/Creatinine Ratio 11 Glucose Level 112 H 70-105 MG/DL Calcium Level 9.1 8.5-10.1 MG/DL Corrected Calcium 8.9 8.5-10.1 MG/DL Magnesium Level 1.8 1.6-2.4 MG/DL Total Bilirubin 0.3 0.1-1.0 MG/DL Aspartate Amino Transf (AST/SGOT) 22 5-34 U/L Alanine Aminotransferase (ALT/SGPT) 33 0-55 U/L Alkaline Phosphatase 164 H 40-136 U/L Myoglobin 24.9 10.0-92.0 NG/ML Troponin I < 0.028 < 0.028 <0.028 NG/ML Total Protein 7.5 6.4-8.2 GM/DL Albumin 4.3 3.2-4.5 GM/DL My Orders Orders - NORTH DUGAN APRN Cbc With Automated Diff (04/15/20:39) Magnesium (04/15/20:39) Chest 1 View, Ap/Pa Only (04/15/20:39) Ekg Tracing (04/15/20:39) Comprehensive Metabolic Panel (04/15/20) Myoglobin Serum (04/15/20:39) Protime With Inr (04/15/20:) Partial Thromboplastin Time (04/15/20:) O2 (04/15/20:) Monitor-Rhythm Ecg Trace Only (04/15/20:) Lipid Panel (04/16/20 06:00) Ed Iv/Invasive Line Start (04/15/20:39) Troponin I (04/15/20:39) Ketorolac Injection (Toradol Injection) (04/15/20 20:00) Aspirin Chewable Tablet (Baby Aspirin Ch (04/15/20 20:00) Fibrin Degradation Products (04/15/20 19:40) Ct Angio Chest W (04/15/20 20:40) Iohexol Injection (Omnipaque 350 Mg/Ml 1 (04/15/20 20:45) Received Contrast (Hold Metformin- Contr (04/15/20 20:45) Ns (Ivpb) (Sodium Chloride 0.9% Ivpb Bag (04/15/20 20:45) Troponin I (04/15/20 21:13) Morphine Injection (Morphine Injection (04/15/20 21:20) Rx-Hydrocodone/Apap 5-325 Mg (Rx-Vicodin (04/15/20 22:45) Medications Given in ED Current Medications Medications Dose Ordered Sig/Eugenio Route Start Time Stop Time Status Last Admin Dose Admin Aspirin 324 mg ONCE ONCE PO 04/15/20 20:00 04/15/20 20:01 DC 04/15/20 20:03 324 MG Iohexol 75 ml ONCE ONCE IV 04/15/20 20:45 04/15/20 21:12 DC 04/15/20 21:03 79 ML Ketorolac Tromethamine 15 mg ONCE ONCE IVP 04/15/20 20:00 04/15/20 20:01 DC 04/15/20 20:03 15 MG Sodium Chloride 100 ml ONCE ONCE IV 04/15/20 20:45 04/15/20 21:12 DC 04/15/20 21:03 100 ML Vital Signs/I&O 04/15/20 04/15/20 19:43 21:05 Temp 37.0 Pulse 102 Resp 20 B/P (MAP) 109/85 (93) Pulse Ox 94 O2 Delivery Room Air Room Air O2 Flow Rate 1.0 Blood Pressure Mean: 93 Diagnostic Imaging Diagonstic Imaging: CT Comments [facility] [id number] PT STATUS: REG ER : 1965 PHYSICIAN: NORTH DUGAN GERIATRIC NURSE ASSISTANT ADMIT DATE: 04/15/20/ER Signed Date of Exam:04/15/20 CT ANGIO CHEST W PROCEDURE: CT angiography of the chest with contrast. TECHNIQUE: Multiple contiguous axial images were obtained through the chest after uneventful bolus administration of intravenous contrast. 3D reconstructed CTA MIP acquisitions were also performed. Auto Exposure Controls were utilized during the CT exam to meet ALARA standards for radiation dose reduction. INDICATION: Chest pain COMPARISON: None. FINDINGS: The heart is mildly enlarged. No pericardial effusion is seen. The pulmonary arteries and aorta are grossly unremarkable. There is no lymphadenopathy. Central airways are grossly normal. There is subsegmental atelectasis in both bases with chronic appearing infiltrates in the bases. There is no pneumothorax. There are a few scattered pulmonary blebs. There is no effusion. Upper abdominal solid organs are unremarkable. Osseous structures are age-appropriate. IMPRESSION: 1. No pulmonary embolism identified. 2. New subsegmental atelectasis in both bases. Dictated by: Dictated on workstation # [id number] Dict: 04/15/202101 Trans: 04/15/202109 [facility] [phone] Interpreted by: TREVOR MUHAMMAD Electronically signed by: TREVOR MUHAMMAD 04/15/202109 Departure Impression Primary Impression: Pleuritic chest pain Disposition: 01 HOME, SELF-CARE Condition: Stable Departure-Patient Inst. Decision time for Depature: 22:35 Referrals: [facility] (PCP) Primary Care Physician EMELY QUINTERO APRN (Family) Primary Care Physician Patient Instructions: Chest Pain, Pleuritic Chest Pain NORTH DUGAN APRN Apr 15, 2020 20:05
--- NOTE | 2020-04-15 20:06 | Diagnostic Imaging Report ---
INDICATION: Chest pain COMPARISON: None. FINDINGS: Single view of the chest demonstrates clear lungs bilaterally. The heart is normal. There is no pneumothorax. The osseous structures are normal. IMPRESSION: Negative chest. Dictated by: Dictated on workstation # [id number]
[2020-04-15 20:26] LABS: FIBRIN DEGRADATION PRODUCTS 1.44 UG/ML (0.00-0.49); INR 0.9 (0.8-1.4); PROTHROMBIN TIME PATIENT 12.3 SEC (12.2-14.7)
[2020-04-15 20:27] LABS: ALBUMIN 4.3 GM/DL (3.2-4.5)
[2020-04-15 20:28] LABS: CALCIUM 9.1 MG/DL (8.5-10.1)
[2020-04-15 20:29] LABS: GLUCOSE 112 MG/DL (70-105); TOTAL PROTEIN 7.5 GM/DL (6.4-8.2)
[2020-04-15 20:30] LABS: CARBON DIOXIDE 21 MMOL/L (21-32)
[2020-04-15 20:31] LABS: BILIRUBIN,TOTAL 0.3 MG/DL (0.1-1.0)
[2020-04-15 20:33] LABS: ALKALINE PHOSPHATASE 164 U/L (40-136); CREATININE SERUM 0.92 MG/DL (0.60-1.30); GFR ESTIMATED > 60
[2020-04-15 20:34] LABS: BUN/CREATININE RATIO 11
[2020-04-15 20:35] LABS: MAGNESIUM 1.8 MG/DL (1.6-2.4)
[2020-04-15 20:36] LABS: ALANINE AMINOTRANSFERASE 33 U/L (0-55)
[2020-04-15] MEDS ORDERED: IOHEXOL 350 MG/ML 100 ML (OMNIPAQUE 350) VIAL IV ONE (20:45)
[2020-04-15] MEDS ORDERED: NS 100 ML (IVPB) BAG IV ONE (20:45)
[2020-04-15] MEDS ORDERED: HOLD METFORMIN - RECEIVED CONTRAST 20 ML VIAL IV SCH (20:45)
--- NOTE | 2020-04-15 21:03 | NUR ---
PT TO CT
[2020-04-15 21:09] LABS: CHLORIDE 106 MMOL/L (98-107); POTASSIUM 3.7 MMOL/L (3.6-5.0); SODIUM 139 MMOL/L (135-145)
--- NOTE | 2020-04-15 21:12 | Diagnostic Imaging Report ---
PROCEDURE: CT angiography of the chest with contrast. TECHNIQUE: Multiple contiguous axial images were obtained through the chest after uneventful bolus administration of intravenous contrast. 3D reconstructed CTA MIP acquisitions were also performed. Auto Exposure Controls were utilized during the CT exam to meet ALARA standards for radiation dose reduction. INDICATION: Chest pain COMPARISON: None. FINDINGS: The heart is mildly enlarged. No pericardial effusion is seen. The pulmonary arteries and aorta are grossly unremarkable. There is no lymphadenopathy. Central airways are grossly normal. There is subsegmental atelectasis in both bases with chronic appearing infiltrates in the bases. There is no pneumothorax. There are a few scattered pulmonary blebs. There is no effusion. Upper abdominal solid organs are unremarkable. Osseous structures are age-appropriate. IMPRESSION: 1. No pulmonary embolism identified. 2. New subsegmental atelectasis in both bases. Dictated by: Dictated on workstation # [id number]
[2020-04-15] MEDS ORDERED: morphine INJ 10 MG/ML 1ML (SYR OR VIAL) IVP STA (21:20)
--- NOTE | 2020-04-15 21:25 | NUR ---
Repeat troponin sent to lab.
[2020-04-15] MEDS ORDERED: RX-HYDROCODONE/APAP 5/325 MG #4 TAB PK PO PRN (22:45)
[2020-04-15 23:02] VITALS: BP 96/60
== END 2020-04-15 23:04 | disposition home or self-care (01) ==
LOC: EDUNIT# 19:28 → ER 19:29
DX: R07.81 Pleurodynia (principal); K21.9 Gastro-esophageal reflux disease without esophagitis; G89.29 Other chronic pain; M54.9 Dorsalgia, unspecified; Z79.52 Long term (current) use of systemic steroids; Z79.891 Long term (current) use of opiate analgesic
CPT/HCPCS: 36415; 71045; 71275; 80053; 83735; 83874; 84484; 85025; 85379; 85610; 85730; 93005; 93041

== ENCOUNTER → 2020-05-06 | Outpatient (CLI) | payer OTHER ==
--- NOTE | 2020-05-06 13:46 | Diagnostic Imaging Report ---
PROCEDURE: CT head without contrast. TECHNIQUE: Multiple contiguous axial images were obtained through the brain without the use of intravenous contrast. Auto Exposure Controls were utilized during the CT exam to meet ALARA standards for radiation dose reduction. INDICATION: Dizziness and headache. COMPARISON: No prior studies are available for comparison. FINDINGS: The ventricles and sulci are within normal limits. No sulcal effacement or midline shift is identified. No acute intra-axial or extra-axial hemorrhage is detected. Cisterns are patent. Visualized paranasal sinuses are clear. IMPRESSION: No acute intracranial process is detected. Dictated by: Dictated on workstation # [id number]
== END ==
LOC: RAD 12:36
PROVIDERS: ATTEND Physician Assistant
DX: R42 Dizziness and giddiness (principal); R51.9 Headache, unspecified
CPT/HCPCS: 70450